=== PATIENT | female | born 1935 | race Caucasian/White ===

== ENCOUNTER 2019-07-06 17:26 | Inpatient (IN) | payer MEDICARE ==
[~2019-07-06 17:26] MED LIST: Iopamidol-370 76% 500 ML 1 ML ONE
[2019-07-06 18:09] LABS: #Eosinphils 0.1 thou/uL (0.0-0.7); #Lymphocytes 2.1 thou/uL (1.20-3.40); #Monocytes 0.7 thou/uL (0.11-0.59); #Neutrophils 6.8 thou/uL (1.40-6.50); %Basophils 0.4 % (0.0-1.0); %Eosinophils 1.3 % (0.0-10.0); %Lymphocytes 21.2 % (21.0-51.0); %Monocytes 7.3 % (0.0-10.0); %Neutrophils 69.8 % (42.0-75.0); Hemoglobin 9.2 g/dL (12.0-16.0); Mean Corpuscular HGB CONC 32.8 g/dL (32.0-36.0); Mean Corpuscular Hemoglobin 28.5 pg (27.0-31.0); Mean Corpuscular Volume 87.1 fL (78.0-98.0); Mean Platelet Volume 6.9 fL (7.4-10.4); Platelet Count 380 thou/uL (130-400); RBC Distribution Width 14.1 % (11.5-14.5); Red Blood Cell (RBC) Count 3.23 mill/uL (4.20-5.40); White Blood Cell (WBC) Count 9.7 thou/uL (4.8-10.8)
--- NOTE | 2019-07-06 18:18 | RAD ---
RADIOGRAPH CHEST 1 VIEW: DATE: 07/06/2019 HISTORY: 84-year-old female with unintentional weight loss, generalized weakness, and syncope. Concern for asp iration. FINDINGS: The thoracic aorta is tortuous and ectatic. There is no evidence of airspace density, cardiomegaly, p ulmonary edema, or pneumothorax. The lateral costophrenic angles are not effaced. IMPRESSION: 1) No acute cardiopulmonary findings. 2) ectasia of thoracic aorta.
[2019-07-06 18:30] LABS: ALT (SGPT) 10 U/L (8-55); AST (SGOT) 13 U/L (5-34); Albumin 3.6 g/dL (3.4-4.8); Alkaline Phosphatase 73 U/L (40-110); Anion Gap 13 mmol/L (10-20); BUN (Urea Nitrogen) 20 mg/dL (9.8-20.1); Bilirubin, Total 0.4 mg/dL (0.2-1.2); Calc. Creatinine Clearance 0 mL/min (70-130); Calcium 8.9 mg/dL (7.8-10.44); Carbon Dioxide 25 mmol/L (23-31); Chloride 102 mmol/L (98-107); Estimated GFR-MDRD 58; Glucose 114 mg/dL (83-110); Potassium 3.9 mmol/L (3.5-5.1); Protein, Total 6.6 g/dL (6.0-8.3); Sodium 136 mmol/L (136-145)
[2019-07-06 18:49] LABS: Bacteria/HPF None Seen HPF (None Seen); Bilirubin Negative (Negative); Blood, Urine Negative (Negative); Clarity Clear (Clear); Glucose, Urine (Dipstick) Normal (Negative); Leukocyte 500 Leu/uL (Negative); Nitrite Negative (Negative); Protein, Urine (Dipstick) Negative (Neg-Trace); RBC/HPF 0-3 HPF (0-3); Squamous Epithelial 0-3 HPF (0-3); WBC/HPF Greater than 50 HPF (0-3)
--- NOTE | 2019-07-06 19:12 | CT ---
CT ABDOMEN WITH CONTRAST CT PELVIS WITH CONTRAST: DATE: 07/06/2019 HISTORY: 84-year-old female with traumatic low back pain after fall COMPARISON: None TECHNIQUE: IV injection of iodinated contrast media: administered. Oral contrast media:Not administered FINDINGS: Multiple partially calcified gallstones. No evidence of laceration or any other major pathology of ki dneys, liver, spleen, pancreas, adrenals, or urinary bladder. Lung bases are grossly clear. No pneumoperitoneum or ascites. No retroperitoneal hematoma. Depression of superior endplate of L2 verte bral body with bony retropulsion that decreases the cross-sectional area of the spinal canal by approximately 30%. Sclerosis at this superior endplate depression represents impaction. Subtle periph eral linear lucencies seen on axial images anteriorly and on the right suggests that this may be an acute or subacute fracture. Overall, approximately 20-30% loss of height. Dextroscoliosis with apex o f curvature centered at L2. Osteopenia. No displaced fracture or dislocation of pelvis identified. IMPRESSION: 1) burst fracture of L2 lumbar vertebra with mild loss of height and bony retropulsion, of indetermin ate age, but favored to be acute or subacute. 2.) Cholelithiasis
[2019-07-06] MEDS ORDERED: Acetaminophen 500 MG TAB ONE (20:22)
[2019-07-06] MEDS ORDERED: Aspirin Chewable 81 MG TAB ONE (20:22)
[2019-07-06 21:22] LABS: Troponin I 0.012 ng/mL (< 0.028)
[2019-07-06 22:06] VITALS: BMI 21.2
[2019-07-07 01:18] LABS: Troponin I Less than 0.010 ng/mL (< 0.028)
--- NOTE | 2019-07-07 05:51 | PDOC.HHP ---
Hospitalist HPI - History of Present Illness Fall, syncope History of Present Illness: 84F with PMH DM, hypothyroidism, nishi, HTN who presents to ED for syncope/ presyncope. Patient got dizzy and fell in shower today. Did not lose consciousness but did get dizzy. No chest pain palpitations SOB. She is under a lot of stress w 2 family members getting cancer recently. She has lost weight and not felt good for weeks. Patient has some back pain. In ED, CT performed of A/P which revealed burst fracture, NSG consulted and recommended LSO brace and will follow. UA strongly positive for infection. No stress test in last year. ED Course: VITAL SIGNS Sat Jul 06, 2019 20:25 BRICE Ford, Maryann Watson BP: 129/71 MAP: 90 Pulse: 88 Resp: 18 Temp: 98.6 (Oral) Pain: 7 O2 sat: 97 on (Room Air) Time: 07/06/2019 20:25. metFORMIN tablet : Strength - 850 mg : ORAL Patient Dose: unk. levothyroxine oral tablet : Strength - 100 mcg : ORAL Patient Dose: unk. lisinopril tablet : Strength - 2.5 mg : ORAL Patient Dose: unk. Hospitalist ROS - Review of Systems Constitutional: reports: weakness, malaise. denies: fever, chills, sweats, other Eyes: denies: pain, vision change, conjunctivae inflammation, eyelid inflammation, redness, other ENT: denies: ear pain, ear discharge, nose pain, nose discharge, nose congestion , mouth pain, mouth swelling, throat pain, throat swelling, other Respiratory: denies: cough, dry, shortness of breath, hemoptysis, SOB with excertion, pleuritic pain, sputum, wheezing, other Cardiovascular: reports: light headedness. denies: chest pain, palpitations, orthopnea, paroxysmal noc. dyspnea, edema, other Gastrointestinal: denies: nausea, vomiting, abdominal pain, diarrhea, constipation, melena, hematochezia, other Genitourinary: denies: dysuria, frequency, incontinence, hematuria, retention, other Musculoskeletal: denies: neck pain, shoulder pain, arm pain, back pain, hand pain, leg pain, foot pain, other Skin: denies: rash, lesions, galo, bruising, other Neurological: denies: weakness, numbness, incoordination, change in speech, confusion, seizures, other All other systems reviewed; all pertinent +/- noted in HPI/Subj Hospitalist History - Past Medical History Other Medical History: DM2, hypothyroidism, iron deficiency anemia, HTN. - Past Surgical History Other Surgical History: denies - Family History Family History: reports: no pertinent history - Social History Smoking Status: Never smoker Alcohol: reports: None Drugs: reports: none - Exam General Appearance: NAD, awake alert Eye: PERRL, anicteric sclera ENT: normocephalic atraumatic, no oropharyngeal lesions, moist mucosa Neck: supple, symmetric, no JVD, no thyromegaly, no lymphadenopathy, no carotid bruit Heart: RRR, no murmur, no gallops, no rubs, normal peripheral pulses Respiratory: CTAB, no wheezes, no rales, no ronchi, normal chest expansion, no tachypnea, normal percussion Gastrointestinal: soft, non-tender, non-distended, normal bowel sounds, no palpable masses, no hepatomegaly, no splenomegaly, no bruit Extremities: no cyanosis, no clubbing, no edema Skin: normal turgor, no lesions, no rashes Neurological: cranial nerve grossly intact, normal sensation to touch, no weakness, no focal deficits, no new deficit Musculoskeletal: normal tone, normal strength, no muscle wasting Psychiatric: normal affect, normal behavior, A&O x 3 Hospitalist Results - Labs Result Diagrams: 07/06/19 18:01 07/06/19 18: Lab results: WBC 9.7 thou/uL (4.8-10.8) 07/06/19 18: Hgb 9.2 g/dL (12.0-16.0) L 07/06/19 18: Hct 28.1 % (36.0-47.0) L 07/06/19 18: MCV 87.1 fL (78.0-98.0) 07/06/19 18: Plt Count 380 thou/uL (130-400) 07/06/19 18: Neutrophils % 69.8 % (42.0-75.0) 07/06/19 18: Sodium 136 mmol/L (136-145) 07/06/19 18: Potassium 3.9 mmol/L (3.5-5.1) 07/06/19 18: Chloride 102 mmol/L (98-107) 07/06/19 18:01 Carbon Dioxide 25 mmol/L (23-31) 07/06/19 18: BUN 20 mg/dL (9.8-20.1) 07/06/19 18: Creatinine 0.92 mg/dL (0.6-1.1) 07/06/19 18: Glucose 114 mg/dL (83-110) H 07/06/19 18: Calcium 8.9 mg/dL (7.8-10.44) 07/06/19 18: Total Bilirubin 0.4 mg/dL (0.2-1.2) 07/06/19 18: AST 13 U/L (5-34) 07/06/19 18: ALT 10 U/L (8-55) 07/06/19 18: Alkaline Phosphatase 73 U/L (40-110) 07/06/19 18: Troponin I Less than 0.010 ng/mL (< 0.028) 07/07/19 00:37 Serum Total Protein 6.6 g/dL (6.0-8.3) 07/06/19 18: Albumin 3.6 g/dL (3.4-4.8) 07/06/19 18: Urine Ketones Negative mg/dL (Negative) 07/06/19 18: Urine Blood Negative (Negative) 07/06/19 18: Urine Nitrite Negative (Negative) 07/06/19 18: Ur Leukocyte Esterase 500 Milagro/uL (Negative) A 07/06/19 18: Urine RBC 0-3 HPF (0-3) 07/06/19 18:29 Urine WBC Greater than 50 HPF (0-3) A 07/06/19 18:29 Ur Squamous Epith Cells 0-3 HPF (0-3) 07/06/19 18:29 Urine Bacteria None Seen HPF (None Seen) 07/06/19 18: Hospitalist H&P A/P - Plan Plan: 84F with PMH DM, hypothyroidism, nishi, HTN who presents to ED for syncope/ presyncope. # syncope - some stress w/ family members with new dx cancer but UTI most obvious cause, treat UTI as below and will order stress test and echo - EKG NSR, PACs, rate [address]/T changes # UTI - UCX, ceftriaxone # HTN - hold home meds, monitor, PRNs in chart # DM - hold metformin, SSI # hypothyroid - check TSH free T4, continue synthroid # NISHI - resume home meds # debility - PT, OT, case management # L2 burst fracture - LSO brace, Dr Olmos called by ED and consulted
[2019-07-07] MEDS ORDERED: cefTRIAXone\\ROCEPHIN 1 GM in Sodium Chloride 0.9% 100 ML IVPB SCH (06:00)
[2019-07-07] MEDS ORDERED: Dextrose 50% Abboject 50 ML SYRINGE SLOW IVP PRN (06:41)
[2019-07-07] MEDS ORDERED: Acetaminophen 325 MG TAB PO PRN (06:41)
[2019-07-07] MEDS ORDERED: Dextrose 5% in Water 1,000 ML IV PRN (06:41)
[2019-07-07] MEDS ORDERED: HumaLOG 300 UNITS/3 ML VIAL SC PRN (06:41)
[2019-07-07] MEDS ORDERED: Morphine 2 MG/ML SYRINGE SLOW IVP PRN (06:42)
[2019-07-07] MEDS ORDERED: Ondansetron PF 4 MG/2 ML Vial IVP PRN (06:42)
[2019-07-07] MEDS ORDERED: cloNIDine 0.1 MG TAB PO PRN (06:42)
[2019-07-07] MEDS ORDERED: hydrALAZINE 20 MG/ML VIAL SLOW IVP PRN (06:42)
[2019-07-07] MEDS ORDERED: Promethazine HCl 12.5 MG in Sodium Chloride 0.9% 50 ML IVPB PRN (06:42)
[2019-07-07] MEDS: Citalopram 20 MG TAB PO SCH (08:12)
[2019-07-07] MEDS: Polyethylene Glycol 3350 17 GM Packet PO SCH (08:13)
[2019-07-07] MEDS: HYDROcodone/Acetaminophen 5/325 mg Tablet PO PRN ×3 (08:15→20:33)
[2019-07-07 08:24] LABS: Free T4 (Free Thyroxine) 1.32 ng/dL (0.70-1.48); Thyroid Stimulating Hormone 0.4493 uIU/mL (0.35-4.94)
[2019-07-07] MEDS ORDERED: FLU VACC TS2019-20(65YR UP)/PF 180 MCG/0.5 ML SYRINGE IM ONE (09:00)
--- NOTE | 2019-07-07 09:18 | CON ---
DATE OF CONSULTATION: Ms. Naranjo was admitted yesterday in the Medicine Service for near syncopal event and sudden onset of lower back pain, which in the emergency department was discovered to have a burst type fracture of the L2 vertebrae with compression of roughly 15% to 20% and only mild bony retropulsion in the lumbar spinal canal. At bedside this morning, she is mostly comfortable and has complaints specifically regarding the TLSO brace, which seems to be extraordinarily ill-fitting. She is a petite woman and I think the brace itself will be too large regardless of how tight we can pull it. Recommendation would be for more of a lumbar corset brace to wear only when up, does not need to wear in bed and can take off for showering if she is seated in a shower chair. She has no neurologic dysfunction of the bilateral lower extremities, has excellent strength and has no radicular pain there. Neurosurgery spine is definitively nonsurgical, again would switch out the current brace as that is rather ill-fitting and uncomfortable to a lumbar corset brace to wear only when up and moving. Plan to follow up in our clinic in 2 to 3 weeks and repeat x-rays. Job ID: [id number]
--- NOTE | 2019-07-07 09:31 | PDOC.EVN ---
Event Note - Event Note Event Note: Code status was discussed with patient and was changed to DNAR
--- NOTE | 2019-07-07 09:40 | PRG ---
DATE OF SERVICE: 07/07/2019 Ms. Naranjo is an 84-year-old female, status post near syncopal event with fall. Neurosurgery was consulted for a mild L2 compression fracture identified as part of a CT of the abdomen and pelvis. I reviewed her imaging and discussed it with Dontae Olmos, and I agreed with his assessment. Our plan will be one of nonoperative management. Treatment for her fracture would be NSAIDs. While she could choose to use lumbar bracing, I do not believe it is necessary from a biomechanical perspective. We will make appropriate outpatient arrangements for her for followup. Job ID: [id number]
[2019-07-07] MEDS ORDERED: ADENOSINE 60 MG/20 ML VIAL ONE (09:54)
--- NOTE | 2019-07-07 13:43 | NM ---
EXAM: NM Cardiac Stress W EF WF PROVIDED CLINICAL HISTORY: Syncope COMPARISON: None RADIOPHARMACEUTICAL: 31.5 millicuries technetium 99m labeled sestamibi IV stress 9.7 millicuries technetium 99m labeled sestamibi IV rest FINDINGS: There is normal, homogeneous distribution of radiotracer throughout the left ventricular myocardium. Gated data demonstrate normal myocardial wall motion and thickening with calculated LVEF 93%. Calculated TID is 1.5. IMPRESSION: 1. No focal reversibility. Elevated TID may reflect balanced ischemia. 2. Calculated LVEF 93%.
[2019-07-07] MEDS ORDERED: Sodium Chloride 0.9% 1,000 ML IV SCH (17:30)
[2019-07-08] MEDS ORDERED: Levothyroxine Sodium 50 MCG TAB PO SCH (06:00)
[2019-07-08] MEDS: Citalopram 20 MG TAB PO SCH (09:08)
[2019-07-08] MEDS: Polyethylene Glycol 3350 17 GM Packet PO SCH (09:08)
[2019-07-08] MEDS: HYDROcodone/Acetaminophen 5/325 mg Tablet PO PRN (09:11)
[2019-07-08 15:04] VITALS: BP 116/58; TEMP 98.2
--- NOTE | 2019-07-08 16:20 | PDOC.HOSPP ---
- Subjective Encounter Date: 07/08/19 Encounter Time: 10:00 Subjective: no overnight events. This morning, feeling well, ambulating without presyncopal episodes - Objective Vital Signs & Weight: Vital Signs (12 hours) Temp Pulse Pulse Resp BP BP BP 07/08/19 14:59 98.2 F 76 12 116/58 L 07/08/19 12:01 98.3 F 78 19 115/66 07/08/19 09:27 81 134/61 136/89 07/08/19 08:50 99.3 F 84 14 07/08/19 08:48 99.3 F 84 14 BP BP BP Pulse Ox 07/08/19 14:59 93 L 07/08/19 12:01 94 L 07/08/19 09:27 07/08/19 08:50 125/66 134/61 129/11 L 93 L 07/08/19 08:48 125/66 134/61 129/71 93 L Weight Weight 124 lb I&O: 07/07/19 07/08/19 07/09/19 06:59 06:59 06:59 Intake Total 150 1240 Balance 150 1240 Result Diagrams: 07/06/19 18:01 07/06/19 18:01 Additional Labs: Accuchecks 07/08/19 07/08/19 07/07/19 10:27 05:57 20:41 POC Glucose 182 H 106 105 07/07/19 18:04 POC Glucose 116 H Radiology Reviewed by me: Yes EKG Reviewed by me: Yes Hospitalist ROS - Review of Systems Constitutional: denies: fever, chills, sweats, weakness, malaise, other Eyes: denies: pain, vision change, conjunctivae inflammation, eyelid inflammation, redness, other Respiratory: denies: cough, dry, shortness of breath, hemoptysis, SOB with excertion, pleuritic pain, sputum, wheezing, other Cardiovascular: denies: chest pain, palpitations, orthopnea, paroxysmal noc. dyspnea, edema, light headedness, other Genitourinary: denies: dysuria, frequency, incontinence, hematuria, retention, other Neurological: denies: weakness, numbness, incoordination, change in speech, confusion, seizures, other - Medication Medications: Active Medications Generic Name Dose Route Start Last Admin Trade Name Freq PRN Reason Stop Dose Admin Hydrocodone Bitart/Acetaminophen 1 tab 07/07/19 06:41 07/08/19 09:11 Cuero 5/325 PO 1 tab Q4H PRN Administration Moderate Pain (4-6) Citalopram Hydrobromide 20 mg 07/07/19 09:00 07/08/19 09:08 Celexa PO 20 mg DAILY TORI Administration Insulin Human Lispro 0 units 07/07/19 06:41 07/08/19 12:24 Humalog SC 2 units .MILD SLIDING SCALE PRN Administration Mild Correctional Scale Levothyroxine Sodium 50 mcg 07/08/19 06:00 07/08/19 05:51 Synthroid PO 50 mcg 0600 TORI Administration Ondansetron HCl 4 mg 07/07/19 06:42 07/07/19 13:14 Zofran IVP 4 mg Q6H PRN Administration Nausea/Vomiting use 1st Pantoprazole Sodium 40 mg 07/07/19 09:00 07/08/19 09:08 Protonix PO 40 mg DAILY TORI Administration Polyethylene Glycol 17 gm 07/07/19 09:00 07/08/19 09:08 Miralax PO 17 gm DAILY TORI Administration - Exam General Appearance: NAD, awake alert Eye: PERRL ENT: normocephalic atraumatic, no oropharyngeal lesions, moist mucosa Neck: supple, symmetric, no JVD, no thyromegaly, no lymphadenopathy, no carotid bruit Heart: RRR, no murmur, no gallops, no rubs, normal peripheral pulses Respiratory: CTAB, no wheezes, no rales, no ronchi, normal chest expansion, no tachypnea, normal percussion Gastrointestinal: soft, non-tender, non-distended, normal bowel sounds, no palpable masses, no hepatomegaly, no splenomegaly, no bruit Neurological: cranial nerve grossly intact, normal sensation to touch, no weakness, no focal deficits, no new deficit Hosp A/P - Plan #Syncope -patient described sudden, out of the blue, faint and fall while putting lipstick on -orthostats -ve -pending EP consult # HTN - hold home meds, monitor, PRNs in chart # DM - hold metformin, SSI # hypothyroidism - asymptomatic, TSH nearly 0.5; can leave levothyroxin at 50mcg and recheck in 6 weeks as outpatient # DOMINGA - resume home meds # debility - PT, OT, case management # L2 burst fracture - LSO brace; per neurosurgery no indication for surgical intervention
--- NOTE | 2019-07-08 23:01 | CON ---
DATE OF CONSULTATION: 07/08/2019 HISTORY OF PRESENT ILLNESS: I am seeing Ms. Naranjo at our [facility] telemetry floor for electrophysiology consult regarding her history of near syncope. Her problems are: 1. Near syncopal spell. a. Mild orthostasis on orthostatic blood pressure measurements. 2. Normal LVEF. No ischemia or scar on nuclear stress test, 07/07/2019. 3. History of hypertension. 4. Type 2 diabetes. 5. Hypothyroidism. ALLERGIES: NONE NOTED. MEDICATIONS: At home include: 1. Citalopram. 2. Lisinopril. 3. Levothyroxine. 4. Metformin. SUBJECTIVE: Ms. Naranjo is here with episode of near syncopal spell. She states she has noticed marked fatigue and tiredness and some dizziness in the morning recently. She was going to her bathroom, but then suddenly felt dizzy and lightheaded, almost passed out. She had slide down/fell down and cracked her vertebrae. She was evaluated for that by Dr. Mo and conservative management is planned. I was asked for evaluating her from the EP standpoint. Currently, she is doing well. No further dizziness or loss of consciousness. No stroke-like symptoms. No neurological deficits. No fever, chills, or cough. No PND or orthopnea. Rest of 12-point system otherwise unremarkable. PAST MEDICAL HISTORY: No prior history of heart disease or heart attacks. Otherwise as above. SOCIAL HISTORY: The patient denies smoking, EtOH, or drug abuse. FAMILY HISTORY: Unremarkable. OBJECTIVE DATA: VITAL SIGNS: Blood pressure is 138/63, heart rate 73, respirations 17, temperature 97.6 degrees Fahrenheit. GENERAL: Alert and oriented elderly woman, in no apparent distress. NECK: Supple. Jugular veins not distended. CHEST: Coarse without crackles. HEART: Sounds are regular to rate and rhythm. No murmur or gallop. ABDOMEN: Benign. Bowel sounds positive. EXTREMITIES: Lower extremities without edema, clubbing, or cyanosis. Pulses are adequate. NEUROLOGIC: The patient is nonfocal. MUSCULOSKELETAL: Without joint swelling or deformities. SKIN: Without rash. DATABASE: EKG is reviewed, revealing sinus rhythm, rate of 79 beats per minute. No signs of ST-T changes. LABORATORY DATA: White cell count is 9.7, hemoglobin 9.2, platelet count is 380. Sodium 136, potassium 3.9, BUN is 20, creatinine 0.92. Troponin levels are negative x3. TSH is 0.44. Telemetry strips reviewed, revealing sinus rhythm, very rare occasions of nonsustained atrial tachycardia, the runs are noted at 11 beats in duration. ASSESSMENT AND PLAN: Ms. Naranjo is a very pleasant 84-year-old woman with history of hypertension, diabetes, preserved LVEF based on the recent stress test without obvious ischemia. She has presented with a near syncopal spell, which has been preceded by long history of some orthostatic dizziness. Indeed, her blood pressure measurements reveal mild orthostasis on admission. She has also some degree of BUN and creatinine mis-balance, could represent signs of dehydration as she states she has somewhat limited food and fluid intake. The exact cause for her near syncopal spell is unknown, but most likely is indeed the orthostatic hypotension spell. Additional arrhythmia issues cannot be ruled out, especially in view of nonsustained atrial tachyarrhythmias, but so far no evidence of that is noted. My plan at this point: 1. I agree with our initiated plan, awaiting results of the echocardiogram. 2. Consider removing hydrochlorothiazide from the home medication regimen and adjust lisinopril to the appropriate levels. 3. Avoid dehydration. 4. If recurrent episodes occur, consider rhythm monitoring. Thank you again for allowing me to participate in the care of this patient. Job ID: [id number]
[2019-07-09] MEDS ORDERED: Ferrous Sulfate 325 MG TAB PO SCH (09:00)
--- NOTE | 2019-07-10 02:22 | DIS ---
DATE OF ADMISSION: 07/07/2019 DATE OF DISCHARGE: 07/08/2019 HOSPITAL COURSE: Ms. Naranjo is an 84-year-old female with medical history of presyncopal episode. Per the patient, she was putting on some lipstick and suddenly nearly fainted resulting in a fall and hitting her low back. She was diagnosed with orthostatic hypotension, but considering her symptoms, there was concern regarding cardiogenic etiology. Cardiology was consulted and an echo was taken. The echocardiogram showed severe mitral regurgitation, which was deemed by Cardiology not related to the presyncopal episode. Per Cardiology, most likely etiology of presyncope was orthostatic hypotension. Cardiology recommended to adjust her antihypertensive medications, so hydrochlorothiazide was discontinued and the patient was educated regarding proper p.o. fluid intake. Prior to discharge, the patient was supplemented with fluid bolus and orthostatic hypotension resolved. The patient was discharged home hemodynamically stable and asymptomatic. PHYSICAL EXAMINATION: VITAL SIGNS: Unremarkable. GENERAL: No apparent distress. Alert and oriented x3. CARDIAC: Regular rate and rhythm. No murmur. No gallops. No rubs. Normal peripheral pulses. LUNGS: Clear to auscultation bilaterally. No wheezes, no rales, no rhonchi. No tachypnea. GI: Soft, nontender, nondistended. Normal bowel sounds. NEUROLOGIC: Cranial nerves grossly intact. Normal sensation. No weakness. No focal deficits. ASSESSMENT AND PLAN: Ms. Naranjo is an 84-year-old female with a medical history of hypertension, who presented with a presyncopal episode. Cardiology was consulted and deemed the episode to be most likely due to orthostatic hypotension based on blood pressure measurement as well as lab findings. However, in case, presyncopal episode recurs, Cardiology recommends to be followed up as an outpatient for further workup of possible cardiogenic etiology. The patient was instructed to increase her p.o. intake of fluids prior to discharge, as well as the change in medication. In addition to that, the patient suffered an L2 burst fracture due to her fall. Neurosurgery evaluated the patient and placed in LSO brace. Per Neurosurgery, there was no indication for the surgical intervention and the patient will be followed up as an outpatient. Job ID: [id number]
== END 2019-07-08 19:18 | disposition home or self-care (01) | DRG 312 ==
LOC: ERS 17:26 → 2NO 20:06 → OBSVTOIN 07-07 05:52
PROVIDERS: ADMIT Internal Medicine; ATTEND Internal Medicine
DX: I95.1 Orthostatic hypotension (principal); S32.021A Stable burst fracture of second lumbar vertebra, initial encounter for closed fracture; I50.32 Chronic diastolic (congestive) heart failure; N39.0 Urinary tract infection, site not specified; Z66 Do not resuscitate; E11.9 Type 2 diabetes mellitus without complications; I11.0 Hypertensive heart disease with heart failure; E86.0 Dehydration; E03.9 Hypothyroidism, unspecified; R53.81 Other malaise; D50.9 Iron deficiency anemia, unspecified; W18.39XA Other fall on same level, initial encounter; Y92.091 Bathroom in other non-institutional residence as the place of occurrence of the external cause; Z79.4 Long term (current) use of insulin
CPT/HCPCS: 36415; 36416; 71045; 74177; 78452; 80053; 81003; 81015; 84439; 84443; 84484; 85025; 87086; 93005; 93017; 93306; A9500; J0153; J0696; J2405; J3490; Q9967

== ENCOUNTER 2019-07-30 08:27 | Outpatient (CLI) | payer MEDICARE ==
--- NOTE | 2019-07-30 08:43 | RAD ---
EXAM: 3 views of the lumbosacral spine HISTORY: Low back pain COMPARISON: CT abdomen/pelvis 07/06/2019 FINDINGS: 3 views of the lumbosacral spine shows a compression fracture of the L2 vertebral body with approximately 50-75% height loss. There is 7 mm retrolisthesis of L2 on L3. The height loss and retrolisthesis have progressed compared to the prior CT. Mild degenerative changes are seen throughou t the lumbar spine. The sacroiliac joints are unremarkable. IMPRESSION: Progression of L2 compression fracture with spondylolisthesis about the fracture.
== END 2019-07-30 08:28 | disposition home or self-care (01) ==
LOC: TBSIIMAG 08:27
PROVIDERS: ATTEND Neurological Surgery
DX: S32.029A Unspecified fracture of second lumbar vertebra, initial encounter for closed fracture (principal); M43.16 Spondylolisthesis, lumbar region
CPT/HCPCS: 72100

== ENCOUNTER 2019-08-01 10:25 | Outpatient (CLI) | payer MEDICARE ==
--- NOTE | 2019-08-01 15:07 | BD ---
Exam: DEXA Bone Density 08/01/19 HISTORY: Postmenopausal screening for osteoporosis. FINDINGS: Lumbar Spine: BMD (g/cm2) T-SCORE L1 0.655 -3.0 L2 0.885 -1.3 L3 0.859 -2.0 L4 0.780 -2.6 L1-L4 0.796 -2.3 Femoral Neck: 0.591 -2.3 Total Femur: 0.840 -0.8 Impression: Osteopenia. POS: OFF
== END 2019-08-01 10:26 | disposition home or self-care (01) ==
LOC: BICMAMMO 10:25
PROVIDERS: ATTEND Internal Medicine
DX: M81.0 Age-related osteoporosis without current pathological fracture (principal); M85.88 Other specified disorders of bone density and structure, other site
CPT/HCPCS: 77080

== ENCOUNTER 2019-08-16 12:20 | Inpatient (IN) | payer MEDICARE ==
[2019-08-16] MEDS ORDERED: Sodium Chloride 0.9% 100 ML ONE (13:30)
[2019-08-16] MEDS ORDERED: cefTRIAXone\\ROCEPHIN 2 GM VIAL ONE (13:30)
[2019-08-16 13:34] LABS: #Eosinphils 0.1 thou/uL (0.0-0.7); #Lymphocytes 1.6 thou/uL (1.20-3.40); #Monocytes 0.9 thou/uL (0.11-0.59); #Neutrophils 6.4 thou/uL (1.40-6.50); %Basophils 0.5 % (0.0-1.0); %Eosinophils 0.8 % (0.0-10.0); %Lymphocytes 17.4 % (21.0-51.0); %Monocytes 9.5 % (0.0-10.0); %Neutrophils 71.8 % (42.0-75.0); Hemoglobin 11.9 g/dL (12.0-16.0); Mean Corpuscular HGB CONC 33.3 g/dL (32.0-36.0); Mean Corpuscular Hemoglobin 29.5 pg (27.0-31.0); Mean Corpuscular Volume 88.5 fL (78.0-98.0); Mean Platelet Volume 7.5 fL (7.4-10.4); Platelet Count 349 thou/uL (130-400); RBC Distribution Width 15.2 % (11.5-14.5); Red Blood Cell (RBC) Count 4.03 mill/uL (4.20-5.40); White Blood Cell (WBC) Count 8.9 thou/uL (4.8-10.8)
[2019-08-16 13:38] LABS: ALT (SGPT) 13 U/L (8-55); AST (SGOT) 16 U/L (5-34); Albumin 3.9 g/dL (3.4-4.8); Alkaline Phosphatase 96 U/L (40-110); Anion Gap 17 mmol/L (10-20); BUN (Urea Nitrogen) 13 mg/dL (9.8-20.1); Bilirubin, Total 0.6 mg/dL (0.2-1.2); Calc. Creatinine Clearance 0 mL/min (70-130); Calcium 10.1 mg/dL (7.8-10.44); Carbon Dioxide 22 mmol/L (23-31); Chloride 99 mmol/L (98-107); Estimated GFR-MDRD 64; Globulin 3.8 g/dL (2.4-3.5); Glucose 103 mg/dL (83-110); Potassium 4.6 mmol/L (3.5-5.1); Protein, Total 7.7 g/dL (6.0-8.3); Sodium 133 mmol/L (136-145)
[2019-08-16 13:46] LABS: Bacteria/HPF 3+ HPF (None Seen); Bilirubin Negative (Negative); Blood, Urine Trace (Negative); Clarity Turbid (Clear); Glucose, Urine (Dipstick) Normal (Negative); Leukocyte 500 Leu/uL (Negative); Nitrite 2+ (Negative); Protein, Urine (Dipstick) Negative (Neg-Trace); Urobilinogen Normal mg/dL (Less than 2); WBC/HPF Greater than 50 HPF (0-3)
--- NOTE | 2019-08-16 14:30 | CT ---
CT BRAIN WITHOUT CONTRAST: 08/16/19 HISTORY: Altered mental status. COMPARISON: None. FINDINGS: There are multiple patchy areas of decreased attenuation in the periventricular white matter consiste nt with chronic small vessel ischemic disease. The ventricular size is appropriate and the basilar ci sterns patent. No evidence of acute infarct, hemorrhage, midline shift, or abnormal extra-axial fluid collections ar e seen. The bony calvarium is intact. The visualized paranasal sinuses and mastoid air cells are well aerated. IMPRESSION: No CT evidence of acute intracranial process. POS: [facility]
--- NOTE | 2019-08-16 14:50 | RAD ---
CHEST ONE VIEW: 08/16/19 HISTORY: Altered mental status. COMPARISON: 06/26/19. FINDINGS: Pulmonary artery is mildly distended. Small left effusion. Faint lower lobe air space opacities. No pneumothorax. No acute osseous abnormality. IMPRESSION: Small left effusion and faint bilateral lobe opacities may reflect atelectasis or developing infectio n. POS: [facility]
[2019-08-16] MEDS ORDERED: Acetaminophen 325 MG TAB PO PRN (15:37)
[2019-08-16] MEDS ORDERED: Aspirin Chewable 81 MG TAB ONE (15:53)
[2019-08-16] MEDS ORDERED: Dextrose 5% in Water 1,000 ML IV PRN (16:28)
[2019-08-16] MEDS ORDERED: HumaLOG 300 UNITS/3 ML VIAL SC PRN (16:28)
[2019-08-16] MEDS ORDERED: Dextrose 50% Abboject 50 ML SYRINGE SLOW IVP PRN (16:28)
[2019-08-16] MEDS ORDERED: Sodium Chloride 0.9% 1,000 ML IV SCH (17:00)
[2019-08-16 17:39] LABS: Troponin I 0.012 ng/mL (< 0.028)
--- NOTE | 2019-08-16 17:39 | HP ---
PRIMARY CARE PROVIDER: Dr. Kade Kendall. CHIEF COMPLAINT: Altered mental status. HISTORY OF PRESENT ILLNESS: Ms. Naranjo is a pleasant 84-year-old lady, who was seen at [facility] on August 16, 2019. The patient is able to provide minimal history. Collateral history was obtained from discussion with the patient's daughter by the bedside, review of medical records and discussion with emergency room physician. Ms. Naranjo was living independently and driving approximately 3 months ago. At that time, she started having decline in her appetite. She was also getting progressively weaker. On July 07, 2019, she sustained a fall with resultant lumbar vertebral fracture. She was also treated for urinary tract infection at that time, although final urine cultures came back negative. Following that hospitalization, initial plan was to admit her to [facility], but it appears that insurance company declined. She was discharged home. Approximately a week ago family requested primary care provider and admitted the patient to [facility] on self pay. Two days later, she was found confused, weaker and needing more help to get into the wheelchair. Urinalysis and urine culture were done a few days ago at the [facility]. She was started on empiric ciprofloxacin. She has reportedly been constipated over the last 2 days. She was brought to the emergency room because of ongoing generalized weakness and confusion. At this time, urine culture results are available. On March 13, urine culture grew Enterococcus faecium that is sensitive to amoxicillin, amoxicillin/clavulanic acid, ampicillin, gentamicin, linezolid, nitrofurantoin, piperacillin, streptomycin and vancomycin, resistant to ciprofloxacin, levofloxacin, penicillin and tetracycline. REVIEW OF SYSTEMS: All systems were reviewed and found to be negative except for the pertinent positives mentioned above. PAST MEDICAL HISTORY: Diabetes mellitus type 2, hypothyroidism, iron deficiency anemia, hypertension, diastolic congestive heart failure, and L2 vertebral fracture. SURGICAL HISTORY: Hysterectomy. SOCIAL HISTORY: No history of tobacco use, alcohol use, or recreational drug use. CODE STATUS: I discussed her code status. She is DNAR. FAMILY HISTORY: No family history of premature coronary artery disease. ALLERGIES: NO KNOWN DRUG ALLERGIES. CURRENT MEDICATIONS: Metformin 850 mg 2 times a day, levothyroxine 100 mcg daily and ciprofloxacin 250 mg 2 times a day. PHYSICAL EXAMINATION: GENERAL: On examination, Ms. Naranjo is awake and alert, not in acute distress. VITAL SIGNS: Blood pressure is 146/90, pulse 90, respiratory rate 18, and oxygen saturation 96% on room air. She is afebrile. EYES: No scleral icterus, no conjunctival pallor. ENT: Dry mucosal membranes. No oropharyngeal erythema or exudates. NECK: Supple, nontender, trachea is midline. RESPIRATORY: Accessory muscles of breathing are not active. Chest wall movements are symmetric bilaterally. Lungs are clear to auscultation without wheeze, rhonchi, or crepitations. CARDIOVASCULAR: S1 and S2 are heard, regular. Peripheral pulses palpable. ABDOMEN: Soft, nontender, bowel sounds are heard. NEUROLOGIC: Cranial nerves 2 through 12 are intact, deep tendon reflexes 2+. MUSCULOSKELETAL: Power is 5/5 in all 4 extremities. LYMPHATIC: No cervical lymphadenopathy. PSYCHIATRIC: Normal mood, normal affect, the patient is oriented to person only, not to place or time. LABORATORY DATA: Ms. Naranjo's labs and investigations were reviewed. She has normal white count, normocytic anemia with hemoglobin 11.9, normal platelet count, decreased sodium of 133, otherwise unremarkable comprehensive metabolic profile, normal lactic acid, normal troponin-I and normal TSH. Urinalysis is positive for leukocyte esterase and nitrite. ASSESSMENT AND PLAN: Ms. Naranjo is a pleasant 84-year-old lady, who was seen at [facility] on August 16, 2019. Her problem list includes: 1. Acute metabolic encephalopathy: Ms. Naranjo is presenting with acute metabolic encephalopathy, most likely secondary to urinary tract infection. She will be admitted to the hospital. She has received ceftriaxone, but given the sensitivity panel returned, I will start her on Zosyn with plan to eventually stepped down to Nitrofurantoin. 2. Urinary tract infection: Antibiotics as above. 3. Diabetes mellitus type 2: Start Accu-Cheks and insulin sliding scale. 4. Hyponatremia: Mild, likely asymptomatic. 5. Hypothyroidism: TSH is normal, continue Synthroid. 6. Poor appetite: Trial Megace. Many thanks for allowing me to participate in your patient's care. Please feel free to contact me with any questions or concerns. LEVEL OF RISK: Moderate. LEVEL OF COMPLEXITY: Moderate. Job ID: [id number]
[2019-08-16 19:40] LABS: Troponin I 0.011 ng/mL (< 0.028)
[2019-08-16] MEDS: Megestrol Acetate 40 MG TAB PO SCH (20:59)
[2019-08-16] MEDS: Piperacillin/Tazobactam 4.5 GM in Sodium Chloride 0.9% 100 ML IVPB SCH (21:01)
[2019-08-17 05:00] LABS: #Eosinphils 0.1 thou/uL (0.0-0.7); #Lymphocytes 1.4 thou/uL (1.20-3.40); #Monocytes 0.6 thou/uL (0.11-0.59); #Neutrophils 5.9 thou/uL (1.40-6.50); %Basophils 0.3 % (0.0-1.0); %Eosinophils 0.7 % (0.0-10.0); %Lymphocytes 17.7 % (21.0-51.0); %Monocytes 7.3 % (0.0-10.0); Hemoglobin 11.6 g/dL (12.0-16.0); Mean Corpuscular HGB CONC 33.9 g/dL (32.0-36.0); Mean Corpuscular Hemoglobin 29.9 pg (27.0-31.0); Mean Corpuscular Volume 88.3 fL (78.0-98.0); Platelet Count 346 thou/uL (130-400); RBC Distribution Width 14.9 % (11.5-14.5); Red Blood Cell (RBC) Count 3.88 mill/uL (4.20-5.40)
[2019-08-17 05:26] LABS: Anion Gap 14 mmol/L (10-20); BUN (Urea Nitrogen) 9 mg/dL (9.8-20.1); Calc. Creatinine Clearance 55 mL/min (70-130); Carbon Dioxide 21 mmol/L (23-31); Chloride 103 mmol/L (98-107); Estimated GFR-MDRD Greater than 90; Glucose 130 mg/dL (83-110); Potassium 3.3 mmol/L (3.5-5.1); Sodium 135 mmol/L (136-145)
[2019-08-17] MEDS: Piperacillin/Tazobactam 4.5 GM in Sodium Chloride 0.9% 100 ML IVPB SCH ×3 (05:43→22:33)
[2019-08-17] MEDS ORDERED: Prevnar 13-Val Conj/PF 0.5 ML SYRINGE IM ONE (09:00)
[2019-08-17] MEDS ORDERED: FLU VACC TS2019-20(65YR UP)/PF 180 MCG/0.5 ML SYRINGE IM ONE (09:00)
[2019-08-17] MEDS: Megestrol Acetate 40 MG TAB PO SCH ×2 (09:28→22:33)
[2019-08-17] MEDS: Enoxaparin Sodium 40 MG/0.4 ML SYRINGE SC SCH (09:35)
--- NOTE | 2019-08-17 13:01 | PDOC.HOSPP ---
- Subjective Encounter Date: 08/17/19 Encounter Time: 12:40 Subjective: f/u for AMS, suspected UTI and generalized weakness. Ucx pending and pt receiving Zosyn/Rocephin. - Objective Vital Signs & Weight: Vital Signs (12 hours) Temp Pulse Resp BP Pulse Ox 08/17/19 11:56 97.8 F 95 16 136/83 98 08/17/19 09:08 99 08/17/19 07:47 98.6 F 92 16 139/81 99 08/17/19 04:00 98.4 F 97 18 146/103 H 96 Weight Weight 114 lb I&O: 08/16/19 08/17/19 08/18/19 06:59 06:59 06:59 Output Total 1050 Balance -1050 Result Diagrams: 08/17/19 04:50 08/17/19 04:50 Additional Labs: Accuchecks 08/17/19 08/17/19 08/16/19 10:48 06:00 19:58 POC Glucose 144 H 142 H 125 H 08/16/19 12:34 POC Glucose 129 H Microbiology 08/13/19 14:00 Urine clean catch Urine Culture - Final Enterococcus faecium 08/16/19 13:25 Urine Straight Catheter Urine Culture - Preliminary 08/16/19 13:07 Venous blood - Right Hand Blood Culture - Preliminary Specimen has been received and culture in progress. No Growth to date. 08/16/19 12:53 Venous blood - Left Hand Blood Culture - Preliminary Specimen has been received and culture in progress. No Growth to date. Laboratory Tests 08/16/19 08/16/19 12:53 12:53 Sodium 133 L Potassium 4.6 Carbon Dioxide 22 L TSH 3rd Generation 0.8168 Radiology Reviewed by me: Yes (PCXR - no acute infiltrates) EKG Reviewed by me: Yes (Tele - SR) Hospitalist ROS - Medication Medications: Active Medications Generic Name Dose Route Start Last Admin Trade Name Freq PRN Reason Stop Dose Admin Enoxaparin Sodium 40 mg 08/17/19 09:00 08/17/19 09:35 Lovenox SC 40 mg 0900 TORI Administration Piperacillin Sod/Tazobactam 100 mls @ 200 mls/hr 08/16/19 22:00 08/17/19 05: 43 Sod 4.5 gm/ Sodium Chloride IVPB 100 mls Q8HR TORI Administration Sodium Chloride 1,000 mls @ 50 mls/hr 08/16/19 17:00 08/16/19 18:30 Normal Saline 0.9% IV 1,000 mls .Q20H TORI Administration Megestrol Acetate 40 mg 08/16/19 21:00 08/17/19 09:28 Megace PO 40 mg BID TORI Administration - Exam General Appearance: NAD, awake alert Eye: PERRL, anicteric sclera ENT: normocephalic atraumatic, no oropharyngeal lesions, dry oral mucosa Neck: supple, symmetric, no JVD, no thyromegaly, no lymphadenopathy Heart: RRR, no murmur, no gallops, no rubs, normal peripheral pulses Respiratory: CTAB, no wheezes, no rales, no ronchi, normal chest expansion, no tachypnea Gastrointestinal: soft, non-tender, non-distended, normal bowel sounds, no palpable masses Extremities: no cyanosis, no clubbing, no edema Skin: normal turgor, no lesions Neurological: cranial nerve grossly intact Musculoskeletal: normal tone, generalized weakness Psychiatric: oriented to person Psychiatric - other findings: smiling, alert Hosp A/P (1) Acute metabolic encephalopathy Code(s): G93.41 - METABOLIC ENCEPHALOPATHY Status: Acute Plan: Likely multifactorial given UTI, dehydration and advanced age (2) UTI (urinary tract infection) Status: Acute Plan: Suspected, continue Zosyn/Rocephin pending final Ucx results (3) Dehydration Code(s): E86.0 - DEHYDRATION Status: Acute Plan: Increase IVF NS 100ml/h (4) Hypokalemia Code(s): E87.6 - HYPOKALEMIA Status: Acute Plan: KCL 40meq x 1 today, repeat K+ level in am (5) Physical deconditioning Code(s): R53.81 - OTHER MALAISE Status: Chronic Plan: PT/OT for mobilization and functional assessment - Plan plan discussed w/ family, continue antibiotics, PT/OT, child welfare social worker, out of bed/ambulate Stable currently Continue Zosyn/Rocephin Increase IVF's NS 100ml/h OOB with PT Ensure/Regular diet AM lab: BMP, CBC
[2019-08-17] MEDS: cefTRIAXone\\ROCEPHIN 1 GM in Sodium Chloride 0.9% 100 ML IVPB SCH (13:35)
[2019-08-17] MEDS: Sodium Chloride 0.9% 1,000 ML IV SCH (13:40)
[2019-08-17] MEDS: Bisacodyl 5 MG TAB PO PRN (22:32)
[2019-08-17] MEDS: Calcium Carbonate 500 MG TAB PO SCH (22:33)
[2019-08-18] MEDS: Sodium Chloride 0.9% 1,000 ML IV SCH ×3 (00:39→21:28)
[2019-08-18 04:50] LABS: #Eosinphils 0.1 thou/uL (0.0-0.7); #Lymphocytes 1.7 thou/uL (1.20-3.40); #Monocytes 0.7 thou/uL (0.11-0.59); #Neutrophils 5.6 thou/uL (1.40-6.50); %Basophils 0.5 % (0.0-1.0); %Eosinophils 1.5 % (0.0-10.0); %Monocytes 8.1 % (0.0-10.0); %Neutrophils 68.9 % (42.0-75.0); Hemoglobin 11.3 g/dL (12.0-16.0); Mean Corpuscular HGB CONC 34.2 g/dL (32.0-36.0); Mean Corpuscular Hemoglobin 30.5 pg (27.0-31.0); Mean Corpuscular Volume 89.1 fL (78.0-98.0); Mean Platelet Volume 7.7 fL (7.4-10.4); Platelet Count 329 thou/uL (130-400); RBC Distribution Width 15.5 % (11.5-14.5); Red Blood Cell (RBC) Count 3.72 mill/uL (4.20-5.40); White Blood Cell (WBC) Count 8.1 thou/uL (4.8-10.8)
[2019-08-18 05:14] LABS: Anion Gap 14 mmol/L (10-20); BUN (Urea Nitrogen) 9 mg/dL (9.8-20.1); Calc. Creatinine Clearance 48 mL/min (70-130); Calcium 9.1 mg/dL (7.8-10.44); Carbon Dioxide 17 mmol/L (23-31); Chloride 106 mmol/L (98-107); Estimated GFR-MDRD 82; Glucose 132 mg/dL (83-110); Potassium 3.4 mmol/L (3.5-5.1); Sodium 134 mmol/L (136-145)
[2019-08-18] MEDS: Levothyroxine Sodium 50 MCG TAB PO SCH (05:15)
[2019-08-18] MEDS: Piperacillin/Tazobactam 4.5 GM in Sodium Chloride 0.9% 100 ML IVPB SCH ×3 (05:15→21:07)
[2019-08-18] MEDS: Polyethylene Glycol 3350 17 GM Packet PO SCH ×2 (09:16→20:37)
[2019-08-18] MEDS: Megestrol Acetate 40 MG TAB PO SCH ×2 (09:17→20:37)
[2019-08-18] MEDS: Calcium Carbonate 500 MG TAB PO SCH ×2 (09:17→20:39)
[2019-08-18] MEDS: Enoxaparin Sodium 40 MG/0.4 ML SYRINGE SC SCH (09:18)
[2019-08-18] MEDS ORDERED: hydrALAZINE 20 MG/ML VIAL SLOW IVP SCH (09:45)
--- NOTE | 2019-08-18 11:59 | PDOC.HOSPP ---
- Subjective Encounter Date: 08/18/19 Encounter Time: 11:50 Subjective: Code Jeremiah called due to AMS and ? stroke-like symptoms. Pt noted less responsive, not talking and seemed agitated per daughter and nursing. BP noted elevated earlier this am and received Hydralazine. - Objective Vital Signs & Weight: Vital Signs (12 hours) Temp Pulse Resp BP BP Pulse Ox 08/18/19 11:20 98.5 F 106 H 24 H 156/83 H 96 08/18/19 10:25 108 H 192/96 H 08/18/19 07:00 99.1 F 97 30 H 187/107 H 95 08/18/19 03:50 98.3 F 86 16 186/106 H 96 Weight Admit Weight 114 lb Weight 114 lb I&O: 08/17/19 08/18/19 08/19/19 06:59 06:59 06:59 Intake Total 1240 Output Total 1050 450 Balance -1050 790 Result Diagrams: 08/18/19 11:50 08/18/19 11:50 Additional Labs: Accuchecks 08/18/19 08/18/19 08/18/19 11:48 10:30 05:43 POC Glucose 172 H 187 H 134 H 08/17/19 08/17/19 20:09 17:02 POC Glucose 192 H 138 H Microbiology 08/13/19 14:00 Urine clean catch Urine Culture - Final Enterococcus faecium 08/16/19 13:25 Urine Straight Catheter Urine Culture - Preliminary 08/16/19 13:07 Venous blood - Right Hand Blood Culture - Preliminary Specimen has been received and culture in progress. No Growth to date. 08/16/19 12:53 Venous blood - Left Hand Blood Culture - Preliminary Specimen has been received and culture in progress. No Growth to date. Laboratory Tests 08/16/19 08/16/19 12:53 12:53 Sodium 133 L Potassium 4.6 Carbon Dioxide 22 L TSH 3rd Generation 0.8168 Microbiology 08/13/19 14:00 Urine clean catch Urine Culture - Final Enterococcus faecium 08/16/19 13:25 Urine Straight Catheter Urine Culture - Preliminary Presumptive Enterococcus sp. Presumptive Enterococcus sp.#2 08/16/19 13:25 Urine Straight Catheter Urine Culture - Preliminary 08/16/19 13:07 Venous blood - Right Hand Blood Culture - Preliminary Specimen has been received and culture in progress. No Growth to date. 08/16/19 12:53 Venous blood - Left Hand Blood Culture - Preliminary Specimen has been received and culture in progress. No Growth to date. Laboratory Tests 08/16/19 08/16/19 12:53 12:53 Sodium 133 L Potassium 4.6 Carbon Dioxide 22 L TSH 3rd Generation 0.8168 Radiology Reviewed by me: Yes (CT brain - L frontal distribution hemorrhagic CVA ) EKG Reviewed by me: Yes (Tele - sinus tachycardia in low 100's) Hospitalist ROS - Medication Medications: Active Medications Generic Name Dose Route Start Last Admin Trade Name Freq PRN Reason Stop Dose Admin Bisacodyl 10 mg 08/16/19 15:37 08/17/19 22:32 Dulcolax PO 10 mg DAILYPRN PRN Administration Constipation Calcium Carbonate 500 mg 08/17/19 21:00 08/18/19 09:17 Oscal-500 PO 500 mg BID TORI Administration Enoxaparin Sodium 40 mg 08/17/19 09:00 08/18/19 09:18 Lovenox SC 40 mg 0900 TORI Administration Ceftriaxone Sodium 1 gm/ 100 mls @ 200 mls/hr 08/17/19 14:00 08/17/19 13:35 Sodium Chloride IVPB 100 mls 1400 TORI Administration Piperacillin Sod/Tazobactam 100 mls @ 200 mls/hr 08/16/19 22:00 08/18/19 05: 15 Sod 4.5 gm/ Sodium Chloride IVPB 100 mls Q8HR TORI Administration Levothyroxine Sodium 50 mcg 08/18/19 06:00 08/18/19 05:15 Synthroid PO 50 mcg 0600 TORI Administration Megestrol Acetate 40 mg 08/16/19 21:00 08/18/19 09:17 Megace PO 40 mg BID TORI Administration Polyethylene Glycol 17 gm 08/18/19 09:00 08/18/19 09:16 Miralax PO 17 gm BID TORI Administration Potassium Chloride 40 meq 08/18/19 10:00 08/18/19 10:29 Klor-Con PO 08/18/19 12:00 40 meq NOW TORI Administration - Exam General - other findings: awake, staring blankly ahead, slow to track Eye: PERRL, anicteric sclera ENT: normocephalic atraumatic, no oropharyngeal lesions Neck: supple, symmetric, no JVD, no thyromegaly, no lymphadenopathy Heart: no gallops, no rubs, normal peripheral pulses Heart - other findings: tachycardic, S1, S2 Respiratory: CTAB, no wheezes, no rales, no ronchi Gastrointestinal: soft, non-tender, non-distended, normal bowel sounds, no palpable masses Extremities: no cyanosis, no clubbing, no edema Skin: normal turgor, no lesions Neurological: speech deficit Neurological - other findings: gaze L with some movement to midline, grimaces to painful stimuli Musculoskeletal - other findings: decreased tone Psychiatric: not oriented, flat affect, somnolent Hosp A/P (1) CVA (cerebral vascular accident) Code(s): I63.9 - CEREBRAL INFARCTION, UNSPECIFIED Status: Acute Qualifiers: Laterality of affected vessel: left Plan: Hemorrhagic CVA L frontal lobe approx 3cm noted on non-contrast CT brain, transfer to CCU, consult Neurology/Neurosurgery, updated family, Code Status DNAR confirmed with daughter, Stroke Alert activated and stroke protocol initiated (2) Acute metabolic encephalopathy Code(s): G93.41 - METABOLIC ENCEPHALOPATHY Status: Acute Plan: Likely multifactorial and exacerbated by #1, serial neuro exams (3) UTI (urinary tract infection) Status: Acute Plan: Continue Zosyn (4) Dehydration Code(s): E86.0 - DEHYDRATION Status: Acute Plan: Hold IVF's due to #1 (5) Hypokalemia Code(s): E87.6 - HYPOKALEMIA Status: Acute Plan: KCL supplementation, serial K+ monitoring, CCU electrolyte replacement protocol (6) Physical deconditioning Code(s): R53.81 - OTHER MALAISE Status: Chronic - Plan plan discussed w/ family, continue antibiotics, transition social worker, DVT proph w/ SCDs Start Cardene gtt Labetalol 10mg IV q1h prn SBP >160 Continue Zosyn/Rocephin Saline lock IVF's Palliative/Spiritual care consult NPO now Transfer to CCU Consult Neurosurgery/Neurology service AM lab: BMP, CBC Code Status: DNAR I personally provided critical care for 35min.
[2019-08-18 12:00] LABS: #Lymphocytes 0.9 thou/uL (1.20-3.40); #Monocytes 0.6 thou/uL (0.11-0.59); #Neutrophils 9.1 thou/uL (1.40-6.50); %Basophils 0.1 % (0.0-1.0); %Eosinophils 0.1 % (0.0-10.0); %Lymphocytes 8.9 % (21.0-51.0); %Monocytes 5.7 % (0.0-10.0); %Neutrophils 85.2 % (42.0-75.0); Hemoglobin 12.2 g/dL (12.0-16.0); Mean Corpuscular HGB CONC 33.6 g/dL (32.0-36.0); Mean Corpuscular Hemoglobin 29.5 pg (27.0-31.0); Mean Platelet Volume 6.9 fL (7.4-10.4); Platelet Count 364 thou/uL (130-400); RBC Distribution Width 15.1 % (11.5-14.5); Red Blood Cell (RBC) Count 4.12 mill/uL (4.20-5.40); White Blood Cell (WBC) Count 10.6 thou/uL (4.8-10.8)
[2019-08-18 12:19] LABS: Troponin I 0.048 ng/mL (< 0.028)
--- NOTE | 2019-08-18 12:34 | CT ---
CT HEAD WITHOUT CONTRAST: Date: 08/18/2019 INDICATION: Stroke alert. Comparison made to CT head performed recently at 08/16/2019. FINDINGS: There is an acute parenchymal hematoma in the superior left frontal lobe abutting the falx. This ada sujey is measured at approximately 3.0 cm AP dimension and there is surrounding edema. There is associ ated subdural hematoma long the falx on the left. Small subdural also is seen along the left tentoriu m. No significant midline shift. Ventricles are mildly prominent, but are unchanged. The chronic ischemi c white matter changes are again noted. IMPRESSION: Acute intraparenchymal hematoma in the superior left frontal lobe with associated subdural hematoma i nvolving the falx and left tentorium. Findings relayed to Dr. Feldman by phone at approximately 1209 hours. CODE CE. POS: [facility]
[2019-08-18] MEDS ORDERED: CCU Electrolyte Replacement 1 EACH FS SCH (12:35)
[2019-08-18] MEDS ORDERED: Magnesium 2 GM/50 ML 2 GM in Premix Bag 1 BAG IVPB PRN (12:38)
[2019-08-18] MEDS ORDERED: Potassium Chloride 40 MEQ in Sodium Chloride 0.9% 250 ML 250 ML IVPB PRN (12:38)
[2019-08-18] MEDS ORDERED: Potassium Chloride 40 MEQ in Premix Bag 1 BAG IVPB PRN (12:38)
[2019-08-18] MEDS ORDERED: Potassium Phosphate 15 MMOL in Sodium Chloride 0.9% 250 ML 250 ML IV PRN (12:38)
[2019-08-18] MEDS ORDERED: CCU ELECTROLYTE REPLACEMENT PROTOCOL FS PRN (12:38)
[2019-08-18] MEDS ORDERED: Potassium Chloride 20 MEQ TAB PO PRN (12:38)
[2019-08-18] MEDS ORDERED: Potassium Phosphate 12 MMOL in Sodium Chloride 0.9% 250 ML 250 ML IV PRN (12:38)
[2019-08-18] MEDS ORDERED: PHOS-NAK 1 PKT PACK PO PRN ×2 (12:38)
[2019-08-18] MEDS ORDERED: Magnesium Oxide 400 MG TAB PO PRN ×2 (12:38)
[2019-08-18] MEDS ORDERED: Potassium Phosphate 9 MMOL in Sodium Chloride 0.9% 100 ML IVPB PRN (12:38)
[2019-08-18] MEDS ORDERED: Labetalol HCl 100 MG/20 ML VIAL ONE (12:40)
[2019-08-18 12:50] LABS: PTT 33.1 SEC (22.9-36.1); Prothrombin Time 13.4 SEC (12.0-14.7)
[2019-08-18 13:08] LABS: ALT (SGPT) 13 U/L (8-55); AST (SGOT) 14 U/L (5-34); Albumin 3.8 g/dL (3.4-4.8); Alkaline Phosphatase 92 U/L (40-110); Anion Gap 17 mmol/L (10-20); BUN (Urea Nitrogen) 13 mg/dL (9.8-20.1); Bilirubin, Total 0.8 mg/dL (0.2-1.2); CK (CPK) 20 U/L (29-168); Calc. Creatinine Clearance 27 mL/min (70-130); Calcium 9.7 mg/dL (7.8-10.44); Carbon Dioxide 18 mmol/L (23-31); Chloride 107 mmol/L (98-107); Estimated GFR-MDRD 41; Globulin 3.1 g/dL (2.4-3.5); Glucose 165 mg/dL (83-110); Protein, Total 6.9 g/dL (6.0-8.3); Sodium 137 mmol/L (136-145)
[2019-08-18] MEDS ORDERED: Labetalol HCl 100 MG/20 ML VIAL SLOW IVP PRN (13:09)
[2019-08-18] MEDS: niCARdipine 25 MG in Sodium Chloride 0.9% 250 ML 240 ML IVPB SCH ×2 (13:35→18:32)
[2019-08-18] MEDS: cefTRIAXone\\ROCEPHIN 1 GM in Sodium Chloride 0.9% 100 ML IVPB SCH (13:47)
[2019-08-18] MEDS ORDERED: hydrALAZINE 20 MG/ML VIAL SLOW IVP PRN (14:00)
--- NOTE | 2019-08-18 19:10 | CT ---
EXAM: CT Brain WO Con PROVIDED CLINICAL HISTORY: Subdural hematoma, intraparenchymal hematoma COMPARISON: 08/18/2019 12:00 PM FINDINGS: Left parafalcine subdural and left high parietal parenchymal hematomas are redemonstrated. The ventri cular system remains nondilated. There is no shift of the midline structures. Basilar cisterns appear patent. IMPRESSION: Significant interval change with respect to the prior examination is not apparent.
--- NOTE | 2019-08-18 23:17 | CON ---
DATE OF CONSULTATION: 08/18/2019 SERVICE: Pulmonary Medicine. REASON FOR CONSULTATION: ICU patient. HISTORY OF PRESENT ILLNESS: The patient is an 84-year-old white female with past medical history significant for recent downward decline. She states she sustained a fall about a month ago. Ever since then, she has had a very challenging time. At home, she was failing to thrive. She became increasingly immobile. The patient's family wanted to put her in a nursing facility, but the insurance company declined. Ultimately, she was finally able to get into a nursing facility. There, her mentation quickly dropped. There was a thought that she had a urinary tract infection and in fact, she did. She was put on Cipro empirically, but 3 days into the treatment course, we ended up identifying the resistance in Cipro was not effective. She was subsequently sent to the emergency department, where she was put on broad-spectrum antibiotics and tucked into the ICU. On hospital day #2, she had abrupt change in mentation, and made a funny face. Neurologic exam changed significantly, and she had a focal neurologic deficit. She was brought down to the emergency department and identified as having an intracranial hemorrhage. She was subsequently brought to the ICU for very close monitoring of her NIH scales. Since she has been here, she has not had any significant deterioration. A repeat CT scan suggested that the bleed was stable. Neurosurgery was consulted, and at this point, she is certainly nonoperative. The patient's family has affirmed that she is a DNI/DNR and would not want aggressive care moving forward. That being said, the family contends that she would want an opportunity to recover from the stroke and see whether or not she can have meaningful existence be on this injury. I cannot get any additional elements of the history from the patient. PAST MEDICAL HISTORY: 1. Type 2 diabetes mellitus. 2. Hypothyroidism. 3. Hypertension. 4. Chronic diastolic heart failure. 5. Recent fracture of the L2 vertebra. 6. Iron-deficiency anemia. PAST SURGICAL HISTORY: Hysterectomy. SOCIAL HISTORY: Negative for alcohol, tobacco, or illicit drug use. She is a lifelong nonsmoker. Recently, she relocated to the [place], but has only been there for brief time. Prior to that, she was functional in her ADLs before her fall. FAMILY HISTORY: Noncontributory. ALLERGIES: NO KNOWN DRUG ALLERGIES. MEDICATIONS: List of her inpatient medications was reviewed. No specific updates were made at this time. I have restarted a little bit of IV fluids in her since she is currently n.p.o. REVIEW OF SYSTEMS: General, head ears, eyes, nose, throat, cardiovascular, respiratory, GI, , musculoskeletal, neurologic, and skin is negative except as mentioned in HPI. PHYSICAL EXAMINATION: HEENT: Normocephalic and atraumatic. Sclerae white. Conjunctivae pink. Oral mucosa is moist without lesions. LUNGS: Good air entry bilaterally. No prolonged expiratory phase or wheezing. HEART: Normal rate, regular. ABDOMEN: Soft, nontender, and nondistended. Bowel sounds are positive. MUSCULOSKELETAL: No cyanosis or clubbing. There is no pitting in the bilateral lower extremities. LABORATORY DATA: WBC 10.6, hemoglobin 12.2, platelets 364,000. INR 1.0. Creatinine 1.24. Basic metabolic profile and liver function studies are unremarkable otherwise. Troponin is gently trending upward, is 0.048. Urinalysis is positive for pyuria and red blood cells. Two different species of enterococcus are growing out of the straight cath. Blood cultures x2 are unremarkable. IMAGING STUDIES: 1. CT of the brain demonstrates intracranial hemorrhage which is roughly stable compared to prior. 2. Chest x-ray demonstrates no acute intracranial abnormality. 3. Original CT of the head did not demonstrate a bleeding lesion from the . ASSESSMENT: 1. Intracerebral hemorrhage. 2. Severe sepsis. 3. Urinary tract infection. DISCUSSION AND PLAN: The patient will be made n.p.o. because she is not safe to swallow. She is in a stuporous state. She is a strict DNI/DNR, which was reaffirmed with the patient's daughter at bedside today. As such, supportive care will be continued to the best of our ability. I will introduce some IV fluids. I have laid out the time course for how intracerebral hemorrhages typically evolve. We are hopeful that this lesion is going to remain stable. The patient's daughter would like every opportunity for her mother to recover. Supportive care sure if chest compressions or intubations will be pursued. We will address feeding in 3 days if she is not safe to swallow at that time. Critical Care will continue to follow very closely in this location. Job ID: [id number]
[2019-08-19 04:25] LABS: Anion Gap 14 mmol/L (10-20); BUN (Urea Nitrogen) 10 mg/dL (9.8-20.1); Calc. Creatinine Clearance 46 mL/min (70-130); Carbon Dioxide 17 mmol/L (23-31); Cardiac Risk 3.4 (Less than 4.5); Chloride 109 mmol/L (98-107); Cholesterol 162 mg/dl (< 200 Desired); Estimated GFR-MDRD 78; Glucose 107 mg/dL (83-110); HDL Cholesterol 48 mg/dL (>60 Neg Risk); LDL Cholesterol, Calculated 91 mg/dL; Potassium 3.4 mmol/L (3.5-5.1); Sodium 137 mmol/L (136-145); Triglycerides 114 mg/dL (Less than 150)
[2019-08-19] MEDS: Labetalol HCl 100 MG/20 ML VIAL SLOW IVP PRN ×2 (04:39→17:17)
[2019-08-19] MEDS: Piperacillin/Tazobactam 4.5 GM in Sodium Chloride 0.9% 100 ML IVPB SCH ×3 (05:25→21:17)
[2019-08-19] MEDS: Levothyroxine Sodium 50 MCG TAB PO SCH (05:26)
[2019-08-19 05:56] LABS: Hemoglobin 10.3 g/dL (12.0-16.0); Mean Corpuscular HGB CONC 33.7 g/dL (32.0-36.0); Mean Corpuscular Volume 89.2 fL (78.0-98.0); Platelet Count 310 thou/uL (130-400); RBC Distribution Width 15.6 % (11.5-14.5); Red Blood Cell (RBC) Count 3.43 mill/uL (4.20-5.40); White Blood Cell (WBC) Count 9.2 thou/uL (4.8-10.8)
--- NOTE | 2019-08-19 06:26 | CON ---
DATE OF CONSULTATION: HISTORY OF PRESENT ILLNESS: Ms. Naranjo is an 84-year-old woman, who was admitted on August 16 for altered mental status and being identified with what appeared to be and was found to have a UTI. Ms. Naranjo is actually known to us from prior evaluation compression fracture with clinic followup at that time. Apparently in the last month, the patient became a resident at the [facility] and has had a progressive slow deterioration in her functional status resulting in the admission 2 days ago. Neurosurgery was consulted today for acute worsening of mental status and stat CT scan of the head performed, which reveals a left-sided superficial parietal, near cortical parietal intracerebral hemorrhage that extended deep in the white matter tract as well as into the extra-axial space and spreads anteriorly across the falx. There is minimal if any compression to the surrounding brain parenchyma. There is no midline shift. Dominguez-white matter differentiation is still quite intact and still has some CSF spaces externally, which are indicative of cortical atrophic changes. The patient was on Lovenox for DVT prophylaxis as the patient's mobility was limited and continues to be so. This has been discontinued. She takes no other blood thinners on a consistent basis. Her neurologic examination for me at the bedside is near nonverbal. She groans when we try to move her arms or wake her up. Nursing staff states that she opens her eyes frequently. However, for me she only opens her eyes very briefly and is not terribly engaged. She does not follow commands for me, but nursing staff again states that she has been following commands for them on the left with limited even on the right. She squints her eyes tight when we asked her to open them. When I open her lids, she then rapidly tries to close them. Pupils are equally round, and reactive to light. Her extraocular movements do appear intact again though I do not have full evaluation of this given how tightly she closes her eyes when attempting to examine. She moves all 4 extremities most frequently to pain. She localizes briskly with the left upper extremity to pain. Her blood pressures right now are in the 110s to 120s, which I think is appropriate. From neurosurgery perspective, we would recommend repeat head CT this evening to ensure that this hemorrhage is no longer increasing. She will need head of bed elevated at 30 degrees and systolic pressures to remain under 160. It is likely best we obtain an MRI of the brain in the morning given the atypical nature of this type of hemorrhage and location. I discussed case with Dr. Mo who is in agreement, and will plan to see in the morning. Job ID: [id number]
[2019-08-19] MEDS: Sodium Chloride 0.9% 1,000 ML IV SCH ×2 (07:40→21:17)
[2019-08-19 07:56] LABS: Band 5 % (5-11); Eosinophils 2 % (0-10); Lymphocytes 9 % (21-51); MDiff Complete? YES; Monocytes 7 % (0-10); Neutrophil 77 % (42-75); Platelet Morphology Comment Appears Adequate; Polychromasia SLIGHT = 2-3 cells (100X) (0-2/hpf)
[2019-08-19] MEDS: Polyethylene Glycol 3350 17 GM Packet PO SCH ×2 (10:43→21:38)
[2019-08-19] MEDS: Calcium Carbonate 500 MG TAB PO SCH ×2 (10:43→21:19)
[2019-08-19] MEDS: Megestrol Acetate 40 MG TAB PO SCH ×3 (10:43→21:38)
--- NOTE | 2019-08-19 10:55 | PRG ---
DATE OF SERVICE: 08/19/2019 Ms. Naranjo is on the 4th day of the hospital admission initially for altered mental status and UTI yesterday with transfer from Stroke Unit to the ICU for sudden onset of further alterations in mental status with CT scan showing intercerebral, intraparenchymal, and subdural hematoma on the left. Repeat scan last night was stable. Her examination this morning is far better than it was yesterday. She still neglects more left than right side with minimal motor response in the right upper and right lower extremity. She does have some movement of pain in the right upper extremity, but it is limited. Extraocular movements are intact. She does follow simple commands such as squeeze my hand on the left and closing her eyes and opening them again when asked. She does not move much in the way of the left lower extremity, which is somewhat surprising. She continues to be mostly aphasic uttering just noises. I do not necessarily comprehend this very well. I feel that it certainly warrants the MRI that was ordered to better investigate other underlying causes . She has does not very well explain this. She will be continued off the blood thinners. No surgery is planned. We will check in when MRI is done, but again no surgery would be recommended. Continue to just follow along. Blood pressures below 160s range, which is excellent. Job ID: [id number]
--- NOTE | 2019-08-19 13:45 | PDOC.HOSPP ---
- Subjective Encounter Date: 08/19/19 Encounter Time: 13:25 Subjective: f/u for hemorrhagic CVA in L frontal/parietal region now more awake and speaking per nursing. Some RUE weakness but overall improved. - Objective Vital Signs & Weight: Vital Signs (12 hours) Temp Pulse BP Pulse Ox 08/19/19 11:00 98.7 F 08/19/19 07:27 96 08/19/19 07:00 98.2 F 08/19/19 06:41 97 08/19/19 04:39 98 162/80 H 08/19/19 04:00 98.5 F Weight Admit Weight 122 lb 5.705 oz Weight 114 lb Most Recent Monitor Data Heart Rate from ECG 86 NIBP 155/79 NIBP BP-Mean 104 Respiration from ECG 22 SpO2 96 I&O: 08/18/19 08/19/19 08/20/19 06:59 06:59 06:59 Intake Total 1240 1491 833 Output Total 450 2780 345 Balance 790 -1287 488 Result Diagrams: 08/19/19 05:39 08/19/19 03:35 Additional Labs: Accuchecks 08/19/19 08/18/19 08/18/19 10:48 23:13 14:18 POC Glucose 118 H 116 H 160 H Microbiology 08/13/19 14:00 Urine clean catch Urine Culture - Final Enterococcus faecium 08/16/19 13:25 Urine Straight Catheter Urine Culture - Preliminary Presumptive Enterococcus sp. Presumptive Enterococcus sp.#2 08/16/19 13:25 Urine Straight Catheter Urine Culture - Preliminary 08/16/19 13:07 Venous blood - Right Hand Blood Culture - Preliminary Specimen has been received and culture in progress. No Growth to date. 08/16/19 12:53 Venous blood - Left Hand Blood Culture - Preliminary Specimen has been received and culture in progress. No Growth to date. Laboratory Tests 08/16/19 08/16/19 12:53 12:53 Sodium 133 L Potassium 4.6 Carbon Dioxide 22 L TSH 3rd Generation 0.8168 Radiology Reviewed by me: Yes (CT brain - L parafalcine and parietal hemorrhage noted, no shift) EKG Reviewed by me: Yes (Tele - SR) Hospitalist ROS - Medication Medications: Active Medications Generic Name Dose Route Start Last Admin Trade Name Freq PRN Reason Stop Dose Admin Bisacodyl 10 mg 08/16/19 15:37 08/17/19 22:32 Dulcolax PO 10 mg DAILYPRN PRN Administration Constipation Calcium Carbonate 500 mg 08/17/19 21:00 08/19/19 10:43 Oscal-500 PO Not Given BID TORI Ceftriaxone Sodium 1 gm/ 100 mls @ 200 mls/hr 08/17/19 14:00 08/18/19 13:47 Sodium Chloride IVPB 100 mls 1400 TORI Administration Piperacillin Sod/Tazobactam 100 mls @ 200 mls/hr 08/16/19 22:00 08/19/19 13: 24 Sod 4.5 gm/ Sodium Chloride IVPB 100 mls Q8HR TORI Administration Potassium Chloride 40 meq/ 270 mls @ 135 mls/hr 08/18/19 12:38 08/19/19 05:48 Sodium Chloride IVPB 270 mls ASDIR PRN Administration FOR SERUM K+ 2.5 - 3.5 Nicardipine HCl 25 mg/ Sodium 250 mls @ 0 mls/hr 08/18/19 13:00 08/18/19 18: 32 Chloride IVPB 250 mls INF TORI Administration Sodium Chloride 1,000 mls @ 100 mls/hr 08/18/19 21:30 08/19/19 07:40 Normal Saline 0.9% IV 1,000 mls .Q10H TORI Administration Labetalol HCl 10 mg 08/18/19 13:11 08/19/19 04:39 Normodyne SLOW IVP 10 mg Q1H PRN Administration SBP GREATER THAN 160 Levothyroxine Sodium 50 mcg 08/18/19 06:00 08/19/19 05:26 Synthroid PO Not Given 0600 [facility] Megestrol Acetate 40 mg 08/16/19 21:00 08/19/19 10:43 Megace PO Not Given BID [facility] Polyethylene Glycol 17 gm 08/18/19 09:00 08/19/19 10:43 Miralax PO Not Given BID [facility] Potassium Chloride 40 meq 08/18/19 17:00 08/19/19 10:42 Klor-Con PO Not Given BID-WM [facility] Potassium Chloride 40 meq 08/18/19 12:38 08/19/19 12:57 K-Dur PO 40 meq ASDIR PRN Administration FOR SERUM K+ 2.5 - 3.5 Sodium Chloride 10 ml 08/18/19 21:00 08/19/19 10:44 Flush - Normal Saline IVF 10 ml Q12HR TORI Administration - Exam General Appearance: NAD, awake alert Eye: PERRL, anicteric sclera ENT: normocephalic atraumatic, no oropharyngeal lesions Neck: supple, symmetric, no JVD, no thyromegaly, no lymphadenopathy Heart: RRR, no murmur, no gallops, no rubs, normal peripheral pulses Respiratory: CTAB, no wheezes, no rales, no ronchi, normal chest expansion, no tachypnea Gastrointestinal: soft, non-tender, non-distended, normal bowel sounds, no palpable masses Extremities: no cyanosis, no clubbing, no edema Skin: normal turgor, no lesions Neurological - other findings: dysarthria, RUE weakness Musculoskeletal: normal tone, generalized weakness Psychiatric: oriented to person Hosp A/P (1) CVA (cerebral vascular accident) Code(s): I63.9 - CEREBRAL INFARCTION, UNSPECIFIED Status: Acute Qualifiers: Laterality of affected vessel: left Plan: Hemorrhagic CVA stable per CT imaging, await MRI brain today, continue routine stroke protocol, appreciate Neurosurgery assistance (2) Acute metabolic encephalopathy Code(s): G93.41 - METABOLIC ENCEPHALOPATHY Status: Acute Plan: Improved, supportive mgmt, see above #1 (3) UTI (urinary tract infection) Status: Acute Plan: Enterococcus spp, continue Zosyn, d/c Rocephin (4) Dehydration Code(s): E86.0 - DEHYDRATION Status: Acute Plan: Resolving (5) Hypokalemia Code(s): E87.6 - HYPOKALEMIA Status: Acute Plan: mild, KCL supplementation (6) Physical deconditioning Code(s): R53.81 - OTHER MALAISE Status: Chronic Plan: PT/OT for mobilization, SNF options - Plan continue antibiotics, PT/OT, social worker health services, speech therapy, DVT proph w/SCDs Stabl Continue Zosyn D/C Rocephin Saline lock IVF's Palliative/Spiritual care consult Cleared for po intake by SIDE [facility] Transfer to Stroke Unit Consult Neurosurgery/Neurology service AM lab: BMP, CBC Code Status: DNAR MRI brain pending
--- NOTE | 2019-08-19 14:59 | MRI ---
MRI of thebrain with and without contrast: 08/19/2019 COMPARISON:Multiple prior head CTs, most recent performed 08/18/2019 HISTORY:Altered mental status, evaluate intracranial hemorrhage TECHNIQUE: Multiplanar multisequence MR imaging of thebrain with and without contrast Findings:The diffusion weighted imaging demonstrates several punctate foci of restricted diffusion co nsistent with areas of infarction. This includes a small focus within the medial left frontal lobe, within the posterior lateral right frontal lobe, within the deep white matter of the right frontal re gion, as well as 2 possible punctate foci within the left cerebellar hemisphere. The gradient echo imaging demonstrates subdural blood associated with the left aspect of the tentoriu m. Subdural blood is also noted to the left of the interhemispheric fissure, measuring up to approximately 6 mm in greatest transverse dimension. There is an intra-axial hemorrhage within the le ft posterior/medial parietal lobe measuring approximately 3.3 cm in AP dimension, probably slightly increased in size when compared to the head CT performed 08/18/2019 at 7:02 PM. There is a second intra -axial hematoma within the medial aspect of the left occipital lobe measuring 1.3 cm. This hemorrhage was not present on the most recent prior head CT. There was a focal area of hypodensity in this region on that most recent head CT. The FLAIR imaging demonstrates subtle scattered areas of increased signal intensity throughout bilate ral cerebellar hemispheres. In addition, there is extensive abnormal increased T2 and FLAIR signal throughout the periventricular, deep, and subcortical white matter bilaterally. In addition, there ar e prominent scattered areas of subcortical edema including bilateral posterior lateral temporal lobes, the mesial temporal lobe bilaterally, bilateral frontal lobes near the vertex, the posterior l eft parietal region, and adjacent to the 2 intra-axial hematomas within the left cerebral hemisphere. The postcontrast imaging is limited by motion artifact. There is no abnormal enhancement associated w ith the intra-axial hemorrhages on the left. There is a suggestion of leptomeningeal enhancement within the cerebellum. Of note, bilateral multifocal cerebral edema. New when compared to prior CT aside from the areas of a johnathon-described hemorrhage. IMPRESSION: Multiple punctate foci of acute infarction. Mildly enlarging left parietal intra-axial he morrhage and new left occipital intra-axial hemorrhage. Numerous foci of new edema throughout bilateral cerebral hemispheres and possible leptomeningeal enhancement within the cerebellum. Subdura l hematoma along the interhemispheric fissure and tentorium on the left. This process is demonstrating rapid progression. Perhaps this is related to a coagulopathy. Question a history of anticoagulation. This could be related to amyloid angiopathy or primary [employer] angiitis. An embolic process, including septic emboli, is a possibility. Results called to Dr. Verdugo at approximately 3:00 PM 08/19/2019.
--- NOTE | 2019-08-19 15:59 | PRG ---
DATE OF SERVICE: 08/19/2019 SERVICE: Pulmonary Medicine. INTERVAL HISTORY: The patient is doing really well from respiratory standpoint. She is actually much more awake and alert this morning. She is following some simple commands. She denies any current chest discomfort or shortness of breath. With a cough, I am not certain whether or not she is going to be able to clear her airway. That being said, she does not have any rhonchorous breath sounds currently. She cannot provide much in the way of interval history, but indicates she is comfortable. PHYSICAL EXAMINATION: VITAL SIGNS: Afebrile, pulse 83, blood pressure 171/81, respirations 20, and saturation 97% on room air. GENERAL: The patient is awake and alert, in no apparent distress. LUNGS: Good air entry bilaterally. No prolonged expiratory phase or wheezing is appreciated. HEART: Normal rate. Regular. ABDOMEN: Soft, nontender, and nondistended. Bowel sounds are positive. MUSCULOSKELETAL: No cyanosis or clubbing. There is no pitting in bilateral lower extremities. LABORATORY DATA: WBC 9.2, hemoglobin 10.3, platelets 310,000. INR 1.0. Potassium 3.4. Creatinine 0.71 and roughly stable. Basic metabolic profile is otherwise unremarkable. Calcium 9.0. Urinalysis is positive for pyuria. Enterococcus faecium is in the urine which is sensitive to any penicillin. It is resistant to the fluoroquinolones. IMAGING: MRI of the brain demonstrates multiple punctate foci of acute infarction. Mildly enlarging left parietal intra-axial hemorrhage and new left occipital intra-axial hemorrhage. Numerous foci of edema throughout bilateral cerebral hemispheres and possible leptomeningeal enhancement within the cerebellum. Subdural hematoma along the interhemispheric fissure and tentorium on the left. This is producing rapid progression. Septic emboli is within the differential. ASSESSMENT: 1. Intracerebral hemorrhage, multifocal. 2. Severe sepsis. 3. Urinary tract infection secondary to enterococcus faecium. DISCUSSION AND PLAN: The patient has multiple foci of hemorrhage as well as punctate lesions throughout bilateral hemispheres. She does not have a coagulopathy so far as we are aware of. She is on appropriate antibiotic therapy for identified organism. Neurologically, she remains intact. She has already been transitioned to the floor. We will watch her very closely there. If she has significant deterioration in function, she remains a very firm DNI/DNR and no aggressive maneuvers will be pursued. As such, for the time being, she can she can stay on the floor. Actually at this point, she has no further inpatient requirements for Pulmonary or Critical Care opinion, and I will sign off. Please call with additional questions or concerns through time. Job ID: [id number]
--- NOTE | 2019-08-19 17:04 | EKG ---
Test Reason : Blood Pressure : / mmHG Vent. Rate : 102 BPM Atrial Rate : 102 BPM P-R Int : 122 ms QRS Dur : 068 ms QT Int : 374 ms P-R-T Axes : 070 086 099 degrees QTc Int : 487 ms Sinus tachycardia with Premature supraventricular complexes Nonspecific ST abnormality Abnormal ECG When compared with ECG of 06-JUL-2019 17:38, No significant change was found Confirmed by DR. Hoda VASQUEZ ([id number]) on 08/19/2019 5:03:54 PM Referred By: KAREN Confirmed By:DR. Hoda VASQUEZ
[2019-08-20] MEDS: Labetalol HCl 100 MG/20 ML VIAL SLOW IVP PRN ×4 (00:46→14:28)
[2019-08-20 01:41] LABS: #Basophils 0.1 thou/uL (0.0-0.2); #Eosinphils 0.1 thou/uL (0.0-0.7); #Lymphocytes 1.9 thou/uL (1.20-3.40); #Monocytes 0.9 thou/uL (0.11-0.59); #Neutrophils 7.9 thou/uL (1.40-6.50); %Basophils 0.6 % (0.0-1.0); %Eosinophils 1.1 % (0.0-10.0); %Lymphocytes 17.2 % (21.0-51.0); %Monocytes 8.2 % (0.0-10.0); %Neutrophils 72.9 % (42.0-75.0); Hemoglobin 10.1 g/dL (12.0-16.0); Mean Corpuscular HGB CONC 33.2 g/dL (32.0-36.0); Mean Corpuscular Hemoglobin 29.4 pg (27.0-31.0); Mean Corpuscular Volume 88.6 fL (78.0-98.0); Mean Platelet Volume 6.8 fL (7.4-10.4); Platelet Count 277 thou/uL (130-400); RBC Distribution Width 15.3 % (11.5-14.5); Red Blood Cell (RBC) Count 3.44 mill/uL (4.20-5.40); White Blood Cell (WBC) Count 10.8 thou/uL (4.8-10.8)
[2019-08-20 02:04] LABS: Anion Gap 12 mmol/L (10-20); BUN (Urea Nitrogen) 9 mg/dL (9.8-20.1); Calc. Creatinine Clearance 54 mL/min (70-130); Calcium 8.8 mg/dL (7.8-10.44); Carbon Dioxide 18 mmol/L (23-31); Chloride 109 mmol/L (98-107); Estimated GFR-MDRD Greater than 90; Glucose 118 mg/dL (83-110); Magnesium 1.8 mg/dL (1.6-2.6); Potassium 3.6 mmol/L (3.5-5.1); Sodium 135 mmol/L (136-145)
[2019-08-20] MEDS: Piperacillin/Tazobactam 4.5 GM in Sodium Chloride 0.9% 100 ML IVPB SCH ×3 (07:17→20:51)
[2019-08-20] MEDS: Levothyroxine Sodium 50 MCG TAB PO SCH (07:51)
--- NOTE | 2019-08-20 08:12 | PRG ---
DATE OF SERVICE: 08/20/2019 Ms. Naranjo this morning actually looks to be tremendously improved from where she was yesterday and particularly the day before. I think, on the whole, she is making quite an impressive overall neurologic recovery, particularly given the MRI findings of scattered hemorrhagic foci. She is very awake, very alert. Her speech is still inhibited, although improved from yesterday, speaking more words. She follows commands mostly just on the left side, but does move some of the right upper and right lower extremities more so than she did yesterday. From neurosurgical standpoint, she stabilized to a degree where we will sign off at this time. If there is any further neurologic decline, we welcome and encourage re-consultation, but again there was no surgical intervention recommended here and we would likely follow up in the outpatient clinics in 6 to 8 weeks. Job ID: [id number]
--- NOTE | 2019-08-20 09:12 | PDOC.HOSPP ---
- Subjective Encounter Date: 08/20/19 Encounter Time: 09:00 Subjective: f/u for hemorrhagic CVA transferred out of CCU to Stroke Unit. Eating small amounts per nursing. - Objective Vital Signs & Weight: Vital Signs (12 hours) Temp Pulse Resp BP BP Pulse Ox 08/20/19 08:36 97.3 F L 80 15 164/77 H 97 08/20/19 06:18 136/79 08/20/19 05:21 84 179/91 H 08/20/19 03:43 97.5 F L 83 20 162/75 H 97 08/20/19 03:25 95 08/20/19 01:17 143/68 H 08/20/19 00:46 87 186/87 H 08/19/19 23:16 98.9 F 91 20 172/87 H 95 Weight Admit Weight 122 lb 5.705 oz Weight 114 lb Most Recent Monitor Data Heart Rate from ECG 86 NIBP 155/79 NIBP BP-Mean 104 Respiration from ECG 22 SpO2 96 I&O: 08/19/19 08/20/19 08/21/19 06:59 06:59 06:59 Intake Total 1491 1639 Output Total 2780 2205 Balance -1289 -566 Result Diagrams: 08/20/19 01:35 08/20/19 01:35 Additional Labs: Accuchecks 08/20/19 08/19/19 08/19/19 06:13 19:12 16:54 POC Glucose 122 H 154 H 108 08/19/19 10:48 POC Glucose 118 H Microbiology 08/13/19 14:00 Urine clean catch Urine Culture - Final Enterococcus faecium 08/16/19 13:25 Urine Straight Catheter Urine Culture - Preliminary Presumptive Enterococcus sp. Presumptive Enterococcus sp.#2 08/16/19 13:25 Urine Straight Catheter Urine Culture - Preliminary 08/16/19 13:07 Venous blood - Right Hand Blood Culture - Preliminary Specimen has been received and culture in progress. No Growth to date. 08/16/19 12:53 Venous blood - Left Hand Blood Culture - Preliminary Specimen has been received and culture in progress. No Growth to date. Laboratory Tests 08/16/19 08/16/19 12:53 12:53 Sodium 133 L Potassium 4.6 Carbon Dioxide 22 L TSH 3rd Generation 0.8168 Radiology Reviewed by me: Yes (MRI Brain - multiple punctate foci hemorrhage bilat, L parietal hemorrhage) EKG Reviewed by me: Yes (Tele - SR) Hospitalist ROS - Medication Medications: Active Medications Generic Name Dose Route Start Last Admin Trade Name Freq PRN Reason Stop Dose Admin Bisacodyl 10 mg 08/16/19 15:37 08/17/19 22:32 Dulcolax PO 10 mg DAILYPRN PRN Administration Constipation Calcium Carbonate 500 mg 08/17/19 21:00 08/19/19 21:19 Oscal-500 PO 500 mg BID TORI Administration Hydralazine HCl 10 mg 08/18/19 14:00 08/19/19 15:22 Apresoline SLOW IVP 10 mg Q4H PRN Administration SBP Greater Than 170 Piperacillin Sod/Tazobactam 100 mls @ 200 mls/hr 08/16/19 22:00 08/20/19 07: 17 Sod 4.5 gm/ Sodium Chloride IVPB 100 mls Q8HR TORI Administration Potassium Chloride 40 meq/ 270 mls @ 135 mls/hr 08/18/19 12:38 08/19/19 05:48 Sodium Chloride IVPB 270 mls ASDIR PRN Administration FOR SERUM K+ 2.5 - 3.5 Nicardipine HCl 25 mg/ Sodium 250 mls @ 0 mls/hr 08/18/19 13:00 08/18/19 18: 32 Chloride IVPB 250 mls INF TORI Administration Sodium Chloride 1,000 mls @ 100 mls/hr 08/18/19 21:30 08/19/19 21:17 Normal Saline 0.9% IV 1,000 mls .Q10H TORI Administration Labetalol HCl 10 mg 08/18/19 13:11 08/20/19 05:21 Normodyne SLOW IVP 10 mg Q1H PRN Administration SBP GREATER THAN 160 Levothyroxine Sodium 50 mcg 08/18/19 06:00 08/20/19 07:51 Synthroid PO Not Given 0600 TORI Megestrol Acetate 40 mg 08/16/19 21:00 08/19/19 21:38 Megace PO Not Given BID TORI Polyethylene Glycol 17 gm 08/18/19 09:00 08/19/19 21:38 Miralax PO Not Given BID TORI Potassium Chloride 40 meq 08/18/19 17:00 08/19/19 10:42 Klor-Con PO Not Given BID-WM [facility] Potassium Chloride 40 meq 08/18/19 12:38 08/19/19 12:57 K-Dur PO 40 meq ASDIR PRN Administration FOR SERUM K+ 2.5 - 3.5 Sodium Chloride 10 ml 08/18/19 21:00 08/19/19 21:19 Flush - Normal Saline IVF 10 ml Q12HR TORI Administration - Exam General Appearance: awake alert General - other findings: smiling, waves L hand Eye: PERRL, anicteric sclera ENT: normocephalic atraumatic, no oropharyngeal lesions Neck: supple, symmetric, no JVD, no thyromegaly, no lymphadenopathy Heart: RRR, no murmur, no gallops, no rubs, normal peripheral pulses Respiratory: CTAB, no wheezes, no rales, no ronchi, normal chest expansion, no tachypnea Gastrointestinal: soft, non-tender, non-distended, normal bowel sounds, no palpable masses Extremities: no cyanosis, no clubbing, no edema Skin: normal turgor, no lesions Neurological - other findings: dysarthria, RU/LE weakness Musculoskeletal: normal tone, generalized weakness Psychiatric: normal affect, oriented to person Hosp A/P (1) CVA (cerebral vascular accident) Code(s): I63.9 - CEREBRAL INFARCTION, UNSPECIFIED Status: Acute Qualifiers: Laterality of affected vessel: left Plan: Continue stroke protocol with PT/OT/ST, consult Neurology for any further recommendations given multiple punctate foci of hemorrhage, check 2D echo/ carotid sono today, SNF vs Rehab options (2) Acute metabolic encephalopathy Code(s): G93.41 - METABOLIC ENCEPHALOPATHY Status: Acute Plan: Improved, continue supportive mgmt (3) UTI (urinary tract infection) Status: Acute Plan: Continue Zosyn IV (4) Hypertension Code(s): I10 - ESSENTIAL (PRIMARY) HYPERTENSION Status: Chronic Qualifiers: Hypertension type: essential hypertension Qualified Code(s): I10 - Essential (primary) hypertension Plan: Labile, start Amlodipine 5mg po daily, serial BP monitoring (5) Hypokalemia Code(s): E87.6 - HYPOKALEMIA Status: Acute Plan: KCL supplementation, serial K+ monitoring (6) Physical deconditioning Code(s): R53.81 - OTHER MALAISE Status: Chronic Plan: PT/OT for mobilization - Plan plan discussed w/ family, continue antibiotics, PT/OT, social worker psychiatric, speech therapy, out of bed/ambulate, DVT proph w/SCDs Stable currently Continue Zosyn D/C Rocephin Saline lock IVF's Palliative/Spiritual care consult Cleared for po intake by [facility] Neurology consult pending AM lab: BMP Code Status: DNAR 2D echo/Carotid sono pending
[2019-08-20] MEDS: Sodium Chloride 0.9% 1,000 ML IV SCH ×3 (09:27→20:09)
[2019-08-20] MEDS: Amlodipine 5 MG TAB PO SCH (10:26)
[2019-08-20] MEDS: Megestrol Acetate 40 MG TAB PO SCH ×2 (10:30→20:11)
[2019-08-20] MEDS: Calcium Carbonate 500 MG TAB PO SCH ×2 (10:30→20:11)
[2019-08-20] MEDS: Polyethylene Glycol 3350 17 GM Packet PO SCH ×2 (10:31→20:11)
--- NOTE | 2019-08-20 11:46 | ULT ---
BILATERAL CAROTID DUPLEX ULTRASOUND: DATE: 08/20/2019 HISTORY: CVA, intracranial hemorrhage. TECHNIQUE: Dominguez scale ultrasound with color flow and spectral Doppler imaging of the extracranial carotid artery systems performed bilaterally. FINDINGS: There is plaque formation on either side. The peak systolic velocity in the right ICA measures 57 cm/second with an end-diastolic velocity of 1 6 cm/second and a systolic ratio of 1.12. The peak systolic velocity in the left ICA measures 47 cm/second with an end-diastolic velocity of 14 cm/second and a systolic ratio of 0.75. Flow in both vertebral arteries remains antegrade. IMPRESSION: No evidence of hemodynamically significant stenosis in either ICA. POS: TPC
--- NOTE | 2019-08-20 12:58 | PQF ---
CLINICAL DOCUMENTATION IMPROVEMENT CLARIFICATION FORM: ICD-10 Updated PLEASE DO AN ADDENDUM TO THE PROGRESS NOTE WITH ANY DOCUMENTATION UPDATES OR ADDITIONS AND CARRY THROUGH TO DC SUMMARY. THANK YOU. DATE: 08/20/2019 ATTN: Dr. Verdugo Please exercise your independent, professional judgment in responding to the clarification form. Clinical indicators are provided on the bottom of this form for your review Please check appropriate box(s) to clarify if the following diagnosis has been ruled in or ruled out: SEPSIS [ ] Ruled in diagnosis [ ] Continue to treat [ ] Resolved [ x ] Ruled out diagnosis [ ] Cannot rule out diagnosis [ ] Other diagnosis [ ] Unable to determine In addition, please specify: Present on Admission (POA): [ ] Yes [ x ] No [ ] Unable to determine For continuity of documentation, please document condition throughout progress notes and discharge summary. Thank You. CLINICAL INDICATORS - SIGNS / SYMPTOMS / LABS / RESULTS AND LOCATION IN MR ER Record 08/16: Stas presents to ED with c/o AMS /weakness that has gotten worse since Monday. DX: AMS right sided weakness, sepsis, UTI H&P 08/16: VS: BP 146/90, pulse 90, resp. 18 O2 sat 96% RA Lab Data: She has normal white count. Normal lactic acid. Urinalysis is positive for leukocyte esterase and nitrite , (Kartik) CVA Acute metabolic encephalopathy UTI 08/18 (Cornelius) Intracerebral hemorrhage, multifocal. Severe sepsis. UTI secondary to enterococcus faecium. RISKS: H&P 08/16: 84 yo with PMH DM 2, HTN, diastolic CHF, and L2 vertebral fx. Assessment and Plan: Acute metabolic encephalopathy. UTI. TREATMENT: H&P 08/16: She has received ceftriaxone, but given the sensitivity panel returned , I will start her on Zosyn with plan to eventually stepped down to Nitrofurantoin. Thank you, Grace (This form is maintained as a part of the permanent medical record) 2014 [employer]. All Rights Reserved Grace Perry RN, BSN [email or web address] Office: [phone] [facility]
--- NOTE | 2019-08-21 00:23 | CON ---
DATE OF CONSULTATION: 08/20/2019 CONSULTING PHYSICIAN: Hospitalist Services. IMPRESSION: Mixture of subdural hematoma, intraparenchymal hemorrhage, extensive small vessel ischemic changes and punctate ischemic injury, likely related to possible amyloid angiopathy. There is no particular treatment. PLAN: The patient can be discharged to fpc for further care. HISTORY OF PRESENT ILLNESS: Ms. Naranjo is an 84-year-old woman who reportedly has been going downhill for the last few months. She was living independently, driving and doing her own personal care without any limitations. Her family started to notice she was getting generally weaker, they got her a walker to help her get around. She seemed to continue to deteriorate and was moved into the [place]. She apparently had some acute neurologic changes and was thought to possibly have a urinary tract infection precipitating encephalopathy. She subsequently had an MRI of the brain which showed extensive vascular problems as noted above. She was in sinus tachycardia. Laboratory studies were fairly unremarkable. She is without any complaints of headache, nausea, vomiting, vertigo, blurred vision, lateralized weakness or numbness. She is limitedly cooperative with the exam as far as giving any history or following through on any commands. PAST MEDICAL HISTORY: Diabetes, hypothyroidism, anemia, hypertension. ALLERGIES: NONE REPORTED. SOCIAL HISTORY: No tobacco or alcohol use. MEDICATIONS: Metformin, levothyroxine. REVIEW OF SYSTEMS: Ten-system review of systems is otherwise negative. PHYSICAL EXAMINATION: GENERAL: She is a reasonably well-nourished, elderly lady, sitting in bed, in no acute distress. VITAL SIGNS: Blood pressure 147/83, pulse 104, respirations 16, sats 98%. HEENT: Pupils equal. Conjunctivae clear. Oropharynx clear. Cranium normocephalic and atraumatic. NECK: No lymphadenopathy. EXTREMITIES: No cyanosis or edema. NEUROLOGICAL: She appeared to be awake, could not really get her to verbalize much. She would make eye contact and smile at her family. Did not note any facial asymmetry. There were no abnormal movements present. Gait was not tested. Speech therapy has done a swallow assessment and she is on a pureed diet. SUMMARY: This is an elderly lady with extensive vascular issues intracranially, who looks remarkably well despite this. There is no particular treatment. She does not require surgery. I would plan on moving her into a fpc for further rehab and recovery. Job ID: [id number]
[2019-08-21] MEDS: Labetalol HCl 100 MG/20 ML VIAL SLOW IVP PRN (04:52)
[2019-08-21] MEDS: Piperacillin/Tazobactam 4.5 GM in Sodium Chloride 0.9% 100 ML IVPB SCH ×3 (04:52→22:48)
[2019-08-21] MEDS: Levothyroxine Sodium 50 MCG TAB PO SCH (04:53)
[2019-08-21] MEDS: Sodium Chloride 0.9% 1,000 ML IV SCH ×2 (08:43→22:47)
[2019-08-21] MEDS: Polyethylene Glycol 3350 17 GM Packet PO SCH ×2 (08:46→22:49)
[2019-08-21] MEDS: Megestrol Acetate 40 MG TAB PO SCH ×2 (08:47→22:47)
[2019-08-21] MEDS: Calcium Carbonate 500 MG TAB PO SCH ×2 (08:47→22:47)
[2019-08-21] MEDS: Amlodipine 5 MG TAB PO SCH (08:47)
--- NOTE | 2019-08-21 10:23 | PDOC.HOSPP ---
- Subjective Encounter Date: 08/21/19 Encounter Time: 10:20 Subjective: f/u for hemorrhagic CVA and multiple bilateral punctate foci of hemorrhage of unclear etiology. Clinically improved and alert. - Objective Vital Signs & Weight: Vital Signs (12 hours) Temp Pulse Resp BP BP Pulse Ox 08/21/19 10:08 158/81 H 08/21/19 08:47 81 08/21/19 07:20 97.9 F 81 14 189/86 H 96 08/21/19 06:30 77 149/60 H 08/21/19 05:10 75 144/75 H 08/21/19 04:52 92 177/86 H 08/21/19 03:04 99.3 F 88 22 H 173/88 H 97 08/20/19 23:09 98 F 87 18 174/90 H 98 Weight Admit Weight 122 lb 5.705 oz Weight 111 lb 8 oz Most Recent Monitor Data Heart Rate from ECG 86 NIBP 155/79 NIBP BP-Mean 104 Respiration from ECG 22 SpO2 96 I&O: 08/20/19 08/21/19 08/22/19 06:59 06:59 06:59 Intake Total 1639 2730 30 Output Total 2205 3075 Balance -566 -345 30 Result Diagrams: 08/20/19 01:35 08/20/19 01:35 Additional Labs: Accuchecks 08/21/19 08/20/19 08/20/19 05:18 19:56 16:42 POC Glucose 120 H 135 H 120 H 08/20/19 11:01 POC Glucose 129 H Microbiology 08/13/19 14:00 Urine clean catch Urine Culture - Final Enterococcus faecium 08/16/19 13:25 Urine Straight Catheter Urine Culture - Preliminary Presumptive Enterococcus sp. Presumptive Enterococcus sp.#2 08/16/19 13:25 Urine Straight Catheter Urine Culture - Preliminary 08/16/19 13:07 Venous blood - Right Hand Blood Culture - Preliminary Specimen has been received and culture in progress. No Growth to date. 08/16/19 12:53 Venous blood - Left Hand Blood Culture - Preliminary Specimen has been received and culture in progress. No Growth to date. Laboratory Tests 08/16/19 08/16/19 12:53 12:53 Sodium 133 L Potassium 4.6 Carbon Dioxide 22 L TSH 3rd Generation 0.8168 Radiology Reviewed by me: Yes (Echo - EF 60-65%, nl valves; Carotid sono - neg) EKG Reviewed by me: Yes (Tele - SR) Hospitalist ROS - Medication Medications: Active Medications Generic Name Dose Route Start Last Admin Trade Name Freq PRN Reason Stop Dose Admin Amlodipine Besylate 5 mg 08/20/19 09:00 08/21/19 08:47 Norvasc PO 5 mg DAILY TORI Administration Bisacodyl 10 mg 08/16/19 15:37 08/17/19 22:32 Dulcolax PO 10 mg DAILYPRN PRN Administration Constipation Calcium Carbonate 500 mg 08/17/19 21:00 08/21/19 08:47 Oscal-500 PO 500 mg BID TORI Administration Hydralazine HCl 10 mg 08/18/19 14:00 08/19/19 15:22 Apresoline SLOW IVP 10 mg Q4H PRN Administration SBP Greater Than 170 Piperacillin Sod/Tazobactam 100 mls @ 200 mls/hr 08/16/19 22:00 08/21/19 04: 52 Sod 4.5 gm/ Sodium Chloride IVPB 100 mls Q8HR TORI Administration Sodium Chloride 1,000 mls @ 100 mls/hr 08/18/19 21:30 08/21/19 08:43 Normal Saline 0.9% IV 1,000 mls .Q10H TORI Administration Labetalol HCl 10 mg 08/18/19 13:11 08/21/19 04:52 Normodyne SLOW IVP 10 mg Q1H PRN Administration SBP GREATER THAN 160 Levothyroxine Sodium 50 mcg 08/18/19 06:00 08/21/19 04:53 Synthroid PO 50 mcg 0600 TORI Administration Megestrol Acetate 40 mg 08/16/19 21:00 08/21/19 08:47 Megace PO 40 mg BID TORI Administration Polyethylene Glycol 17 gm 08/18/19 09:00 08/21/19 08:46 Miralax PO 17 gm BID TORI Administration Potassium Chloride 40 meq 08/18/19 17:00 08/21/19 08:46 Klor-Con PO 40 meq BID-WM TORI Administration Sodium Chloride 10 ml 08/18/19 21:00 08/21/19 08:48 Flush - Normal Saline IVF Not Given Q12HR TORI - Exam General Appearance: NAD, awake alert General - other findings: smiles Eye: PERRL, anicteric sclera ENT: normocephalic atraumatic, no oropharyngeal lesions Neck: supple, symmetric, no JVD, no thyromegaly, no lymphadenopathy Heart: RRR, no murmur, no gallops, no rubs, normal peripheral pulses Respiratory: CTAB, no wheezes, no rales, no ronchi, normal chest expansion Gastrointestinal: soft, non-tender, non-distended, normal bowel sounds Extremities: no cyanosis, no clubbing Skin: normal turgor, no lesions Neurological: no new deficit Musculoskeletal: normal tone, generalized weakness Psychiatric: oriented to person Hosp A/P (1) CVA (cerebral vascular accident) Code(s): I63.9 - CEREBRAL INFARCTION, UNSPECIFIED Status: Acute Qualifiers: Laterality of affected vessel: left Plan: Continue routine stroke protocol, continue PT/OT/ST (2) Acute metabolic encephalopathy Code(s): G93.41 - METABOLIC ENCEPHALOPATHY Status: Acute Plan: Mild improvement, wax/waning, supportive mgmt (3) UTI (urinary tract infection) Status: Acute Plan: Continue Zosyn another 24h then convert to po option (4) Hypertension Code(s): I10 - ESSENTIAL (PRIMARY) HYPERTENSION Status: Chronic Qualifiers: Hypertension type: essential hypertension Qualified Code(s): I10 - Essential (primary) hypertension Plan: Increase Amlodipine 10mg daily (5) Hypokalemia Code(s): E87.6 - HYPOKALEMIA Status: Acute (6) Physical deconditioning Code(s): R53.81 - OTHER MALAISE Status: Chronic - Plan plan discussed w/ family, continue antibiotics, PT/OT, social work msw, speech therapy, out of bed/ambulate, DVT proph w/SCDs Stable currently Continue Zosyn another 24h then convert to po option D/C Rocephin Saline lock IVF's Palliative/Spiritual care consult Cleared for po intake by PACKAGING ASSEMBLER Code Status: DNAR Increase Amlodipine 10mg daily
[2019-08-21] MEDS ORDERED: Amlodipine 5 MG TAB PO SCH (10:45)
--- NOTE | 2019-08-21 12:58 | PQF ---
CLINICAL DOCUMENTATION IMPROVEMENT CLARIFICATION FORM: ICD-10 Updated PLEASE DO AN ADDENDUM TO THE PROGRESS NOTE WITH ANY DOCUMENTATION UPDATES OR ADDITIONS AND CARRY THROUGH TO DC SUMMARY. THANK YOU. Date: 08/21/2019 ATTN: Dr. Verdugo Please exercise your independent, professional judgment in responding to the clarification form. Clinical indicators are provided on the bottom of this form for your review Please check appropriate box(s): [ x ] Protein Calorie Malnutrition: [ ] Mild [ x ] Moderate [ ] Severe [ ] Other Malnutrition (please specify) [ ] Underweight without malnutrition [ ] Other diagnosis [ ] Unable to determine In addition, please specify: Present on Admission (POA): [ x ] Yes [ ] No [ ] Unable to determine CLINICAL INDICATORS - SIGNS / SYMPTOMS / LABS / RESULTS AND LOCATION IN MR H&P 08/16: A/P: Poor appetite. 08/17 (Cornelius) "sustained fall about a month ago...At home, she was failing to thrive." Automobile Relocation Engineer Assessment : BMI 19.5 Nutrition diagnosis: Malnutrition r/t poor appetite as evidenced by -16% wt loss x 3 months; daughter report of pt eating less than 25% most meal trays likely meeting less than 50% estimated nutrient needs suggesting severe malnutrition in the context. RISKS: H&P 08/16: 84 yo with PMH DM 2, HTN, diastolic CHF, and L2 vertebral fx. A/P: Acute metabolic encephalopathy. UTI. Poor appetite. PN 08/17 (Kartik) Hemorrhagic CVA. Physical deconditioning. TREATMENT: H&P 08/06: A/P Trial Megace Order : Supplement: Mighty Shake TID with meals. Automobile Relocation Engineer Assessment . Moderate Malnutrition (in acute illness) Energy Intake: <75% of estimated energy requirement for > 7 days Weight Loss: 1-2%/1 week; 5%/ 1 month; 7.5%/3 months Other: mild body fat loss; mild muscle mass loss; mild fluid accumulation; Severe Malnutrition (in acute illness) Energy Intake: < 50% of estimated energy requirement for > 5 days Weight Loss: >1-2%/1 week; >5%/1 month; >7.5%/3 months Other: moderate body fat loss; moderate muscle mass loss; moderate- severe fluid accumulation; measurably reduced medical social consultant strength Moderate Malnutrition (in chronic illness) Energy Intake: <75% of estimated energy requirement for >1 month Weight Loss: 5%/1 month; 7.5%/3 months; 10%/6 months; 20%/1 year Other: mild body fat loss; mild muscle mass loss; mild fluid accumulation Severe Malnutrition (in chronic illness) Energy Intake: <75% of estimated energy requirement for >1 month Weight Loss: >5%/1 month; >7.5%/3 months; >10%/6 months; >20%/1 year Other: severe body fat loss; severe muscle mass loss; severe fluid accumulation; measurably reduced medical social consultant strength Thank you, Grace (This form is maintained as a part of the permanent medical record) 2015 [employer] All Rights Reserved Grace Perry RN, BSN [email or web address] Office: [phone] [facility]
[2019-08-22] MEDS: Piperacillin/Tazobactam 4.5 GM in Sodium Chloride 0.9% 100 ML IVPB SCH (06:35)
[2019-08-22] MEDS: Sodium Chloride 0.9% 1,000 ML IV SCH (06:38)
[2019-08-22] MEDS: Levothyroxine Sodium 50 MCG TAB PO SCH (06:38)
[2019-08-22] MEDS: Polyethylene Glycol 3350 17 GM Packet PO SCH ×3 (10:28→23:29)
[2019-08-22] MEDS: Amlodipine 10 MG TAB PO SCH (10:30)
[2019-08-22] MEDS: Megestrol Acetate 40 MG TAB PO SCH ×2 (10:30→22:14)
[2019-08-22] MEDS: Calcium Carbonate 500 MG TAB PO SCH ×2 (10:31→22:14)
[2019-08-22] MEDS ORDERED: Bisacodyl 10 MG SUPP PR PRN (10:55)
[2019-08-22] MEDS ORDERED: Magnesium Citrate 300 ML BOT PO SCH (11:00)
--- NOTE | 2019-08-22 11:14 | PDOC.HOSPP ---
- Subjective Encounter Date: 08/22/19 Encounter Time: 11:05 Subjective: f/u for CVA with R hemiparesis and encephalopathy. Mild increased po intake since last pm with puree/nectar thick liquids. More alert per family report. - Objective Vital Signs & Weight: Vital Signs (12 hours) Temp Pulse Resp BP BP Pulse Ox 08/22/19 10:30 93 08/22/19 07:30 97.9 F 93 16 133/75 98 08/22/19 04:00 97.3 F L 84 20 167/82 H 96 08/22/19 00:00 98.4 F 86 22 H 156/75 H 95 Weight Admit Weight 122 lb 5.705 oz Weight 111 lb 8 oz Most Recent Monitor Data Heart Rate from ECG 86 NIBP 155/79 NIBP BP-Mean 104 Respiration from ECG 22 SpO2 96 I&O: 08/21/19 08/22/19 08/23/19 06:59 06:59 06:59 Intake Total 2730 2015 Output Total 3860 2175 Balance -345 -160 Result Diagrams: 08/20/19 01:35 08/20/19 01:35 Additional Labs: Accuchecks 08/22/19 08/21/19 08/21/19 05:49 20:18 16:57 POC Glucose 108 172 H 102 Microbiology 08/13/19 14:00 Urine clean catch Urine Culture - Final Enterococcus faecium 08/16/19 13:25 Urine Straight Catheter Urine Culture - Preliminary Presumptive Enterococcus sp. Presumptive Enterococcus sp.#2 08/16/19 13:25 Urine Straight Catheter Urine Culture - Preliminary 08/16/19 13:07 Venous blood - Right Hand Blood Culture - Preliminary Specimen has been received and culture in progress. No Growth to date. 08/16/19 12:53 Venous blood - Left Hand Blood Culture - Preliminary Specimen has been received and culture in progress. No Growth to date. Laboratory Tests 08/16/19 08/16/19 12:53 12:53 Sodium 133 L Potassium 4.6 Carbon Dioxide 22 L TSH 3rd Generation 0.8168 EKG Reviewed by me: Yes (Tele - SR) Hospitalist ROS - Medication Medications: Active Medications Generic Name Dose Route Start Last Admin Trade Name Freq PRN Reason Stop Dose Admin Amlodipine Besylate 10 mg 08/22/19 09:00 08/22/19 10:30 Norvasc PO 10 mg DAILY TORI Administration Bisacodyl 10 mg 08/16/19 15:37 08/17/19 22:32 Dulcolax PO 10 mg DAILYPRN PRN Administration Constipation Calcium Carbonate 500 mg 08/17/19 21:00 08/22/19 10:31 Oscal-500 PO 500 mg BID TORI Administration Hydralazine HCl 10 mg 08/18/19 14:00 08/19/19 15:22 Apresoline SLOW IVP 10 mg Q4H PRN Administration SBP Greater Than 170 Labetalol HCl 10 mg 08/18/19 13:11 08/21/19 04:52 Normodyne SLOW IVP 10 mg Q1H PRN Administration SBP GREATER THAN 160 Levothyroxine Sodium 50 mcg 08/18/19 06:00 08/22/19 06:38 Synthroid PO 50 mcg 0600 TORI Administration Megestrol Acetate 40 mg 08/16/19 21:00 08/22/19 10:30 Megace PO 40 mg BID TORI Administration Polyethylene Glycol 17 gm 08/18/19 09:00 08/22/19 10:28 Miralax PO 17 gm BID TORI Administration Sodium Chloride 10 ml 08/18/19 21:00 08/22/19 10:31 Flush - Normal Saline IVF Not Given Q12HR TORI - Exam General Appearance: awake alert General - other findings: states one word responses, nods head, smiles Eye: PERRL, anicteric sclera ENT: normocephalic atraumatic, no oropharyngeal lesions Neck: supple, symmetric, no JVD, no thyromegaly Heart: RRR, no murmur, no gallops, no rubs, normal peripheral pulses Respiratory: CTAB, no wheezes, no rales, no ronchi, normal chest expansion, no tachypnea Gastrointestinal: soft, non-tender, non-distended, normal bowel sounds, no palpable masses Extremities: no cyanosis, no clubbing, no edema Skin: normal turgor, no lesions Neurological - other findings: dysarthric, R hemiparesis, dysphagia Musculoskeletal: generalized weakness, diffuse muscle atrophy Psychiatric: oriented to person Hosp A/P (1) CVA (cerebral vascular accident) Code(s): I63.9 - CEREBRAL INFARCTION, UNSPECIFIED Status: Acute Qualifiers: Laterality of affected vessel: left Plan: Continue general stroke protocol, PT/OT/ST, [facility] for [place] [facility] mgmt (2) Acute metabolic encephalopathy Code(s): G93.41 - METABOLIC ENCEPHALOPATHY Status: Acute Plan: Improved (3) UTI (urinary tract infection) Status: Acute Plan: Completed course with Zosyn, d/c IV abx (4) Hypertension Code(s): I10 - ESSENTIAL (PRIMARY) HYPERTENSION Status: Chronic Qualifiers: Hypertension type: essential hypertension Qualified Code(s): I10 - Essential (primary) hypertension (5) Hypokalemia Code(s): E87.6 - HYPOKALEMIA Status: Acute Plan: d/c KCL (6) Physical deconditioning Code(s): R53.81 - OTHER MALAISE Status: Chronic Plan: PT/OT, fall risk precautions - Plan plan discussed w/ family, PT/OT, social service liaison, speech therapy, DVT proph w/ SCDs Stable currently D/C Zosyn D/C Rocephin Saline lock IVF's Palliative/Spiritual care consult Cleared for po intake by ENVIRONMENTAL LEAD, add supplements Code Status: DNAR Increase Amlodipine 10mg daily Mag citrate/Dulcolax supp Likely to [facility] in 24h
[2019-08-22 12:02] VITALS: BMI 19.1
[2019-08-23] MEDS: Levothyroxine Sodium 50 MCG TAB PO SCH (06:47)
[2019-08-23] MEDS: Bisacodyl 5 MG TAB PO PRN (09:07)
[2019-08-23] MEDS: Amlodipine 10 MG TAB PO SCH (09:07)
[2019-08-23] MEDS: Megestrol Acetate 40 MG TAB PO SCH (09:08)
[2019-08-23] MEDS: Polyethylene Glycol 3350 17 GM Packet PO SCH (09:08)
[2019-08-23] MEDS: Calcium Carbonate 500 MG TAB PO SCH (09:08)
[2019-08-23 16:00] VITALS: BP 135/75; TEMP 98.2
--- NOTE | 2019-08-24 00:35 | DIS ---
DATE OF ADMISSION: 08/16/2019 DATE OF DISCHARGE: 08/23/2019 DISCHARGE DIAGNOSES: 1. Acute cerebrovascular accident with subdural hematoma and intraparenchymal hemorrhage with multiple punctate ischemic changes bilaterally. 2. Dysarthria secondary to #1. 3. Acute metabolic encephalopathy, improved. 4. Urinary tract infection with Enterococcus species, resolved. 5. Hypertension, labile. 6. Hypokalemia, resolved. 7. Deconditioning. 8. Right hemiparesis. CONSULTATIONS: 1. Dr. Dax Palacios with Neurology Service. 2. Dr. Mo with Neurosurgical Service. 3. Dr. Shields with Pulmonary Critical Care Service. PERTINENT LABORATORY AND X-RAY FINDINGS: Potassium ranged between 3.3 to 5.0, total cholesterol 162, triglycerides 114, HDL 48, LDL 91, TSH 0.82. CBC showed hemoglobin ranging between 10.1 to 12.2. Blood cultures x2 dated 08/16/2019, showed no growth at 5 days. Urine culture dated 08/16/2019, showed 75 to 100,000 colonies of Enterococcus faecium. CT of the brain without contrast dated 08/16/2019, showed no acute intracranial process. Portable chest x-ray dated 08/16/2019, showed small left effusion with associated atelectasis. CT of the brain dated 08/18/2019, showed acute intraparenchymal hematoma in the superior left frontal lobe associated with subdural hematoma involving the falx and left tentorium. CT of the brain dated 08/18/2019, showed no significant interval change with persistent findings of left parafalcine subdural and left high parietal parenchymal hematoma. MRI of the brain dated 08/19/2019, showed multiple punctate foci of acute infarct. Left parietal intra-axial hemorrhage and new left occipital intra-axial hemorrhage. Carotid Doppler study dated 08/20/2019, showed no hemodynamically significant stenosis. 2D transthoracic echocardiogram dated 08/20/2019, showed ejection fraction of 60% to 65%. Moderate left ventricular hypertrophy. No pericardial effusions. No valvular vegetation. HOSPITAL COURSE: The patient was initially admitted after presenting with altered mental status after recent fall. The patient underwent CT imaging of the brain showing no acute process at the time of admission. Metabolic screening showed evidence of urinary tract infection with Enterococcus species at which point patient was placed on IV antibiotic therapy. The patient received IV fluids in addition to Rocephin and Zosyn with monitoring of clinical progress. The patient received general supportive care and improved in the first 24 hours, however, developed sudden altered mentation during her monitoring, prompting a Code Green evaluation. The patient was noted with dysarthria and right-sided weakness undergoing stat CT imaging of the brain showing evidence of an acute intraparenchymal hemorrhage as stated previously. The patient underwent general stroke management and transferred to the Critical Care Unit. Neurology and neurosurgical consultation were obtained, however due to patient's findings, no specific recommendation for an acute intervention recommended. The patient received general supportive management with slow improvement and neurologic function. The patient was evaluated by Speech Therapy and deemed appropriate for modified diet intake and received ongoing physical and occupational therapy. Due to the patient's overall deconditioned status, acute CVA, the patient was deemed appropriate candidate for ongoing supervised and long-term care. Overall, the patient remained clinically stable during the hospital course, however, requires ongoing supervision due to high fall risk and general care needs. The patient has been approved to transfer to [facility] and will transition on 08/23/2019. I have examined the patient at the time of discharge and discussed followup instructions with the family. The patient ready for discharge on 08/23/2019. DISCHARGE MEDICATIONS: 1. Calcium carbonate 500 mg p.o. b.i.d. 2. Levothyroxine 50 mcg p.o. daily. 3. Metformin 250 mg p.o. b.i.d. 4. Norvasc 10 mg p.o. daily. 5. Dulcolax 10 mg per rectum q.8 hours p.r.n. 6. Megace 40 mg p.o. b.i.d. 7. MiraLAX 17 g p.o. b.i.d. FOLLOWUP: The patient may follow up with her primary care provider, Dr. Kade St, after discharge from long-term care. CONDITION ON DISCHARGE: Guarded. ACTIVITY: Rolling walker with contact guard assist and high fall risk precautions. DIET: Regular with pureed texture and nectar thick liquids. CODE STATUS: Do not attempt resuscitation. DISPOSITION: Transfer to [place], [place], 08/23/2019. TIME SPENT: Total time preparing and coordinating discharge, 38 minutes. Job ID: [id number]
== END 2019-08-23 18:35 | DRG 64 ==
LOC: ERS 12:20 → 2SE 17:59 → CCU 08-18 12:05 → 2SE 08-19 14:28
PROVIDERS: ADMIT Internal Medicine; ATTEND Family Medicine
DX: I62.01 Nontraumatic acute subdural hemorrhage (principal); G93.41 Metabolic encephalopathy; I50.32 Chronic diastolic (congestive) heart failure; Z66 Do not resuscitate; N39.0 Urinary tract infection, site not specified; E87.1 Hypo-osmolality and hyponatremia; E44.0 Moderate protein-calorie malnutrition; Z68.1 Body mass index [BMI] 19.9 or less, adult; G81.91 Hemiplegia, unspecified affecting right dominant side; I61.1 Nontraumatic intracerebral hemorrhage in hemisphere, cortical; R47.01 Aphasia; E11.9 Type 2 diabetes mellitus without complications; E03.9 Hypothyroidism, unspecified; I11.0 Hypertensive heart disease with heart failure; E86.0 Dehydration; E87.6 Hypokalemia; D50.9 Iron deficiency anemia, unspecified; B95.2 Enterococcus as the cause of diseases classified elsewhere; R40.2362 Coma scale, best motor response, obeys commands, at arrival to emergency department; R40.2142 Coma scale, eyes open, spontaneous, at arrival to emergency department; R40.2252 Coma scale, best verbal response, oriented, at arrival to emergency department; R47.1 Dysarthria and anarthria; Z90.710 Acquired absence of both cervix and uterus; Z79.899 Other long term (current) drug therapy; Z79.84 Long term (current) use of oral hypoglycemic drugs
CPT/HCPCS: 36415; 36416; 51701; 70450; 70553; 71045; 80048; 80053; 80061; 81003; 81015; 82550; 83605; 83735; 84443; 84484; 85007; 85025; 85027; 85610; 85730; 87040; 87077; 87086; 87186; 92950; 93005; 93010; 93306; 93880; 96361; 96365; A4353; J0360; J0696; J1650; J2543; J3480; J3490; J7050; S0179